=== PATIENT | female | born 2005 | race Caucasian/White ===

== ENCOUNTER 2025-08-09 12:54 | Emergency (ER) | payer BC, SELFPAY ==
--- NOTE | ~2025-08-09 | CT_ITS ---
Exam: CT abdomen and pelvis with contrast Clinical History: [Hypoglycemia. ] Comparison: [ None available] Technique: Multiple axial CT images of the abdomen and pelvis were obtained with IV contrast. Sagittal and coronal reformatted images were obtained. FINDINGS: Lung bases: [ ] Liver: The liver is heterogeneous particularly in the right lobe of the liver near the liver dome. There are a few too small to characterize low-attenuation lesions in the liver. [ No intrahepatic biliary duct dilatation.] Gallbladder: [ No wall thickening or stones.] Common bile duct: [ Normal caliber.] [ No stones.] Spleen: [ Within normal limits.] Pancreas: [ No mass. No pancreatic fluid collection.] Adrenals: [ No masses.] Kidneys: [ No masses. No hydronephrosis.][ ] Lymph nodes: [ No adenopathy in the abdomen or pelvis.] Stomach, small bowel and colon: [ No bowel wall thickening or obstruction.] Peritoneum cavity: Small amount of nonspecific fluid and fat stranding in the pelvis. Bladder: [ Unremarkable.] Osseous structures: [ No acute fracture or destructive lesion.] [ Multilevel degenerative change in the visualized spine.] Abdominal aorta: [ No aneurysm.] Additional findings: [ None of significance.] IMPRESSION: 1. The liver is heterogeneous particularly in the right lobe of the liver near the liver dome. Differential includes but is not limited to hepatocellular disease, fatty infiltration or hepatitis. Other etiologies are possible. There are a few too small to characterize low-attenuation lesions in the liver as well. A liver mass MRI is recommended for further assessment. Correlate clinically. 2. Small amount of nonspecific fluid and fat stranding in the pelvis. Reviewed, dictated and finalized at location Q. IMPRESSION: 1. The liver is heterogeneous particularly in the right lobe of the liver near the liver dome. Differential includes but is not limited to hepatocellular dise ase, fatty infiltration or hepatitis. Other etiologies are possible. There are a few too small to characterize low-attenuation lesions in the liver as well. A liver mass MRI is recommended for further assessment. Correlate clinically. 2. Small amount of nonspecific fluid and fat stranding in the pelvis.
--- NOTE | ~2025-08-09 | CT_ITS ---
CT HEAD NON-CONTRAST Clinical History: AMS Comparison: None Technique: Unenhanced axial images skull base to vertex Coronal, sagittal reformats CT images acquired with automatic exposure control for dose reduction DLP: 605 mGy-cm Findings: Sulci, ventricles: Unremarkable. No intracerebral hemorrhage. No evidence acute territorial infarct. No mass effect, midline shift. Bony calvarium intact. Visualized paranasal sinuses: Clear. Mastoid air cells: Clear. IMPRESSION: 1. No acute intracranial findings. Reviewed, dictated and finalized at location R.
[2025-08-09 13:01] VITALS: BP 148/85; PULSE 81; RESP 20; TEMP 36.9; O2SAT 100
[2025-08-09 13:23] LABS: BEDSIDEPREGUCG Negative (Negative)
--- NOTE | 2025-08-09 13:56 | ED_ITS ---
HPI - General Adult General Chief complaint: Recheck/Abnormal Lab/Rx Stated complaint: low BS Time Seen by Provider: 08/09/25 13:13 History of Present Illness HPI narrative: Patient is a 20-year-old female who presents ER with low blood sugar. She is not known to be diabetic. She has had issues with low blood sugar in the past. She reports she ate a normal breakfast and had just finished eating [employer] when this occurred. She did have loss of consciousness and her blood sugar was found to be in the 50s. Patient does feel lightheaded with sitting up. She denies any recent febrile illness. She has been having some crampy abdominal discomfort. No urinary frequency urgency or dysuria. Denies heavy alcohol use or any drug use. She does report that her legs feel weak and heavy. Related Data Allergies Allergy/AdvReac Type Severity Reaction Status Date / Time No Known Allergies Allergy Verified 08/09/25 15:02 Review of Systems 2 Review of Systems: All systems reviewed & are unremarkable except as noted in HPI and below Constitutional: Constitutional: Reports no additional constitutional complaints ENT: Reports system reviewed and no additional complaints, except as documented Cardiovascular: Cardiovascular: Reports no additional cardiovascular complaints Respiratory: Respiratory: Reports no additional respiratory complaints Gastrointestinal: Gastrointestinal: Reports no additional gastrointestinal complaints Genitourinary: Genitourinary: Reports no additional female genitourinary complaints Musculoskeletal: Musculoskeletal: Reports no additional musculoskeletal complaints [facility] Past Medical History Medical History (Updated 08/09/25 @ 16:56 by Thomas Villatoro MD) Healthy female adult Social History Social History (Updated 08/09/25 @ 13:58 by Thomas Villatoro MD) Alcohol intake: never Substance use: never Exam 2 Narrative: GENERAL: Well-appearing, well-nourished, and in no acute distress. HEAD: Normocephalic, atraumatic. EYES: PERRL and EOMI. ENT: Mucous membranes moist. CHEST: Clear to auscultation. No respiratory distress. HEART: Regular rate and rhythm. Normal peripheral pulses. ABDOMEN: Soft, nontender, nondistended. EXTREMITIES: Normal range of motion. No edema. SKIN: Warm, dry, no rash. NEURO: Alert and oriented x3. PSYCH: Normal mood and affect. Course Course Emergency Course: Discussed labs and imaging results with the patient her family. I have also discussed them with Dr. Gurrola the on-call PCP as the patient does not have 1. He is happy to follow the patient up and further evaluate the liver inflammation with an MRI. I will also add on a hepatitis panel. Vital Signs Vital signs: Vital Signs Temperature 98.5 F 08/09/25 13:01 Pulse Rate 81 08/09/25 13:01 Respiratory Rate 20 08/09/25 13:01 Blood Pressure 148/85 H 08/09/25 13:01 Pulse Oximetry 100 08/09/25 13:01 Oxygen Delivery Room Air 08/09/25 13:01 Temperature 98.5 F 08/09/25 13:01 Pulse Rate 87 08/09/25 13:58 Respiratory Rate 16 08/09/25 13:58 Blood Pressure 129/75 08/09/25 13:58 Pulse Oximetry 99 08/09/25 13:58 Oxygen Delivery Room Air 08/09/25 13:01 Medical Decision Making Vital Signs Vital Signs: Vital Signs Temperature 98.5 F 08/09/25 13:01 Pulse Rate 81 08/09/25 13:01 Respiratory Rate 20 08/09/25 13:01 Blood Pressure 148/85 H 08/09/25 13:01 Pulse Oximetry 100 08/09/25 13:01 Oxygen Delivery Room Air 08/09/25 13:01 Temperature 98.5 F 08/09/25 13:01 Pulse Rate 87 08/09/25 13:58 Respiratory Rate 16 08/09/25 13:58 Blood Pressure 129/75 08/09/25 13:58 Pulse Oximetry 99 08/09/25 13:58 Oxygen Delivery Room Air 08/09/25 13:01 Lab Data 08/09/25 13:58 08/09/25 13:58 Labs: Lab Results 08/09/25 08/09/25 08/09/25 Range/Units 13:03 13:21 13:28 WBC (4.5-10.0) K/mm3 RBC (4.2-5.4) M/mm3 Hgb (12.0-15.0) g/dL Hct (37.0-47.0) % MCV (80-100) fl MCH (26-34) pg MCHC (32-36) g/dl RDW (11.5-14.5) % Plt Count (150-375) k/mm3 MPV (7.4-10.4) fl Immature Gran % (Auto) (0-0.5) % Neut % (Auto) (45.5-73.1) % Lymph % (Auto) (18.3-44.2) % Brooke % (Auto) (2.6-8.5) % Eos % (Auto) (0-4.4) % Baso % (Auto) (0.2-1.2) % Lymph # (Auto) (0.9-3.2) K/mm3 Brooke # (Auto) (0.1-0.6) K/mm3 Eos # (Auto) (0-0.3) K/mm3 Baso # (Auto) (0.0-0.1) K/mm3 Abs Immat Gran (auto) (0.00-0.031) K/mm3 Absolute Neuts (auto) (1.3-6.7) K/mm3 Absolute Nucleated RBC (0.0-0.012) K/mm3 Nucleated RBC % (0.0-0.2) % Sodium (137-145) mmol/L Potassium (3.4-5.0) mmol/L Chloride (98-107) mmol/L Carbon Dioxide (22-30) mmol/L Anion Gap (4-12) mmol/L BUN (7-17) mg/dL Creatinine (0.7-1.0) mg/dL Estim Creat Clear Calc ml/min Estimated GFR (59 - ) Glucose (65-110) mg/dL POC Capillary Glucose 152 H 159 H (65-105) mg/dl Insulin Level C-Peptide Calcium (8.4-10.2) mg/dL Total Bilirubin (0.2-1.3) mg/dL AST (14-36) U/L ALT (6-35) U/L Alkaline Phosphatase (38-126) U/L Total Protein (6.3-8.2) g/dL Albumin (3.5-5.1) g/dL Lipase (23-300) U/L Urine Color (Yellow) Urine Appearance (Clear) Urine pH (5.0-9.0) Ur Specific Center Line (1.001-1.035) Urine Protein (Negative) mg/dL Urine Glucose (UA) (Negative) mg/dL Urine Ketones (Negative) mg/dL Ur Blood (Man) (Negative) Urine Nitrate (Negative) Urine Bilirubin (Negative) Urine Urobilinogen (<2.0) mg/dL Leukocyte Esterase Rfl (Negative) MARGO/UL POC Urine HCG, Qual Negative (Negative) Urine Opiates Screen (Negative) Urine Methadone Screen (Negative) Ur Barbiturates Screen (Negative) Ur Phencyclidine Scrn (Negative) Ur Amphetamine Screen (Negative) U Benzodiazepines Scrn (Negative) Urine Cocaine Screen (Negative) U Cannabinoids Screen (Negative) 08/09/25 08/09/25 Range/Units 13:58 14:25 WBC 7.8 (4.5-10.0) K/mm3 RBC 4.15 L (4.2-5.4) M/mm3 Hgb 13.2 (12.0-15.0) g/dL Hct 38.3 (37.0-47.0) % MCV 92.3 (80-100) fl MCH 31.8 (26-34) pg MCHC 34.5 (32-36) g/dl RDW 11.7 (11.5-14.5) % Plt Count 289 (150-375) k/mm3 MPV 10.2 (7.4-10.4) fl Immature Gran % (Auto) 0.3 (0-0.5) % Neut % (Auto) 62.4 (45.5-73.1) % Lymph % (Auto) 27.5 (18.3-44.2) % Brooke % (Auto) 7.9 (2.6-8.5) % Eos % (Auto) 0.9 (0-4.4) % Baso % (Auto) 1.0 (0.2-1.2) % Lymph # (Auto) 2.15 (0.9-3.2) K/mm3 Brooke # (Auto) 0.6 (0.1-0.6) K/mm3 Eos # (Auto) 0.1 (0-0.3) K/mm3 Baso # (Auto) 0.1 (0.0-0.1) K/mm3 Abs Immat Gran (auto) 0.02 (0.00-0.031) K/mm3 Absolute Neuts (auto) 4.9 (1.3-6.7) K/mm3 Absolute Nucleated RBC 0.000 (0.0-0.012) K/mm3 Nucleated RBC % 0.0 (0.0-0.2) % Sodium 137 (137-145) mmol/L Potassium 3.4 (3.4-5.0) mmol/L Chloride 104 (98-107) mmol/L Carbon Dioxide 25 (22-30) mmol/L Anion Gap 8 (4-12) mmol/L BUN 9 (7-17) mg/dL Creatinine 0.69 L (0.7-1.0) mg/dL Estim Creat Clear Calc 99 ml/min Estimated GFR > 60 (59 - ) Glucose 135 H (65-110) mg/dL POC Capillary Glucose (65-105) mg/dl Insulin Level Pending C-Peptide Pending Calcium 9.1 (8.4-10.2) mg/dL Total Bilirubin 0.4 (0.2-1.3) mg/dL AST 23 (14-36) U/L ALT 20 (6-35) U/L Alkaline Phosphatase 40 (38-126) U/L Total Protein 7.4 (6.3-8.2) g/dL Albumin 4.2 (3.5-5.1) g/dL Lipase 37 (23-300) U/L Urine Color Yellow (Yellow) Urine Appearance Clear (Clear) Urine pH 7.5 (5.0-9.0) Ur Specific Center Line 1.004 (1.001-1.035) Urine Protein Negative (Negative) mg/dL Urine Glucose (UA) Trace H (Negative) mg/dL Urine Ketones Negative (Negative) mg/dL Ur Blood (Man) Negative (Negative) Urine Nitrate Negative (Negative) Urine Bilirubin Negative (Negative) Urine Urobilinogen 0.2 (<2.0) mg/dL Leukocyte Esterase Rfl Negative (Negative) MARGO/UL POC Urine HCG, Qual (Negative) Urine Opiates Screen Negative (Negative) Urine Methadone Screen Negative (Negative) Ur Barbiturates Screen Negative (Negative) Ur Phencyclidine Scrn Negative (Negative) Ur Amphetamine Screen Negative (Negative) U Benzodiazepines Scrn Negative (Negative) Urine Cocaine Screen Negative (Negative) U Cannabinoids Screen Negative (Negative) Imaging Data Radiologist's impression: ITS Impressions Head CT 08/09/25 13:47 IMPRESSION: 1. No acute intracranial findings. Abdomen/Pelvis CT 08/09/25 15:27 IMPRESSION: 1. The liver is heterogeneous particularly in the right lobe of the liver near the liver dome. Differential includes but is not limited to hepatocellular disease, fatty infiltration or hepatitis. Other etiologies are possible. There are a few too small to characterize low-attenuation lesions in the liver as well. A liver mass MRI is recommended for further assessment. Correlate clinically. 2. Small amount of nonspecific fluid and fat stranding in the pelvis. Discharge Plan Discharge Clinical Impression: Hypoglycemia, Abnormal CT scan Patient Disposition: Home Condition: Stable Instructions: Non-diabetic Hypoglycemia (ED) Additional Instructions: Your blood sugar was low and was able to be corrected without issue. You have some labs that are still pending that will need to be followed up by a primary care doctor and you need to contact Dr. Gurrola's office to schedule an appointment. He is expecting this. Additionally you will need an outpatient MRI that he can help arrange. Return the ER if you have recurrent loss of consciousness or low blood sugar, you develop chest pain shortness of breath, you cannot keep down food water, or you have additional concerns. Patient Language: Mongolian Follow-up/Referrals: Solomon Gurrola MD [Physician, Family Practice] - 3 Days PHYSICIAN,LICENSED PRACTICAL VOCATIONAL NURSE [Primary Care Provider, Internal Medicine]
[2025-08-09 13:58] VITALS: BP 129/75; PULSE 87; RESP 16; O2SAT 99
[2025-08-09] MEDS: SODIUM CHLORIDE 0.9% IV 1,000 ML 999 ML IV CONT (13:58)
[2025-08-09 14:09] LABS: Hematocrit 38.3 % (37.0-47.0); Hemoglobin 13.2 g/dL (12.0-15.0); Immature Granulocyte Percent A 0.3 % (0-0.5); Lymphocytes Absolute Auto 2.15 K/mm3 (0.9-3.2); Mean Corpuscular HGB Conc 34.5 g/dl (32-36); Mean Corpuscular Hemoglobin 31.8 pg (26-34); Mean Corpuscular Volume 92.3 fl (80-100); Nucleated Red Blood Cells Absolute Auto 0.000 K/mm3 (0.0-0.012); Nucleated Red Blood Cells Perc 0.0 % (0.0-0.2); Platelet Count Result 289 k/mm3 (150-375); Red Blood Count 4.15 M/mm3 (4.2-5.4); White Blood Count 7.8 K/mm3 (4.5-10.0)
[2025-08-09 14:37] LABS: Add Urine Microscopic? NO; Appearance Urine Clear (Clear); Glucose Urine UA Trace mg/dL (Negative); Leukocyte Esterase Ur Negative LEU/UL (Negative); Nitrate Urine Negative (Negative); Specific Grav Ur 1.004 (1.001-1.035)
[2025-08-09 14:38] LABS: Alanine Aminotransferase 20 U/L (6-35); Albumin Level 4.2 g/dL (3.5-5.1); Alkaline Phosphatase 40 U/L (38-126); Anion Gap 8 mmol/L (4-12); Aspartate Amino Transferase 23 U/L (14-36); Bilirubin,Total 0.4 mg/dL (0.2-1.3); Blood Urea Nitrogen 9 mg/dL (7-17); Calcium 9.1 mg/dL (8.4-10.2); Carbon Dioxide 25 mmol/L (22-30); Chloride 104 mmol/L (98-107); Estimated CRCL calculation 99 ml/min; Estimated Glomerular Filt Rate > 60; Glucose 135 mg/dL (65-110); Lipase 37 U/L (23-300); Potassium 3.4 mmol/L (3.4-5.0); Sodium 137 mmol/L (137-145); Total Protein 7.4 g/dL (6.3-8.2)
[2025-08-09 14:58] LABS: Cannabinoid Screen Urine Negative (Negative)
--- OUTSIDE RECORDS SUMMARY | 2025-08-09 15:15 | XMS_ITS | Clinical Summary ---
Author Organization [facility] Address [address] 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 Last Documented On 0 1:25PM ; [facility] Plan of Treatment - Return to the clinic if condition worsens or new symptoms arise - Last Documented On 03/18/2023 12:52PM ; [facility] - Follow-up visit as needed with an office visit if symptoms persist or worsen - Last Documented On 03/18/2023 12:52PM ; [facility] - Patient to call if problem develops - Last Documented On 03/18/2023 12:52PM ; [facility] Instructions to patient Go to the emergency room if condition worsens Last Documented On 3 12:46PM ; [facility] Watch for signs/symptoms of infection Last Documented On 3 12:46PM ; [facility] Watch for signs/symptoms of infection, return to the clinic if seen Last Documented On 3 12:46PM ; [facility] Assessments Includes: Assessments from this encounter Findings - Acute pharyngitis - Last Documented On 03/18/2023 12:52PM ; [facility] Instructions Includes: Instructions from this encounter Instructions to patient Go to the emergency room if condition worsens Last Documented On 3 12:46PM ; [facility] Watch for signs/symptoms of infection Last Documented On 3 12:46PM ; [facility] Watch for signs/symptoms of infection, return to the clinic if seen Last Documented On 3 12:46PM ; [facility] Medical Equipment - Implanted Devices Includes: Current Devices No Medical Equipment Recorded Medications Includes: Medications discussed during this encounter and other current Medications Discontinued / Stopped on this date JOEL CARRILLO on 07/05/2022 Cephalexin 500 MG Oral Capsule Provider: JOEL CARRILLO Diagnosis: Acute pharyngiti s, unspecified Last Documented On 3 12:23PM By Courtney MCCABE ; [facility] Cephalexin 500 MG Oral Capsule Provider: ESTEPHANIA DODD Diagnosis: Acute tonsilliti s, unspecified Last Documented On 3 12:23PM By Courtney MCCABE ; [facility] New / Renewed during this visit JOEL CARRILLO on 03/18/2023 Cephalexin 500 MG Oral Capsule Provider: JOEL CARRILLO 10 day supply: 20 capsule, 0 refills Diagnosis: Acute pharyngitis, unspecified 1 CAPSULE TWO TIMES A DAY Pharmacy: [address], [phone] - Last Documented On 3 12:44PM By JOEL CARRILLO ; [facility] Current Medications (continue as prescribed) Hydrocortisone 1% External Cream 03/20/2022 Provider: JOEL DODD Diagnosis: Allergic contact dermatitis, unspecified cause Apply twice a day to neck ra sh until healed Last Documented On 2 6:40PM By Joel JONES-C ; [facility] Crl-Ft-Fvxpqvnq 0.18/0.215/0.25MG-25 MCG Oral Tablet 0 04/26/2019 Provider: Diagnosis: Last Documented On 2 2:03PM By JODY KRISHNAN [facility] ; [facility] Past Medications on file Amoxicillin 500 MG Oral Tablet 01/14/2020 - 01/24/2020 Provider: IVIS DODD Diagnosis: Streptococcal pharyngitis One tablet twice a day for ten days Last Documented On 01/14/2020 8:52AM By Ivis Crowley TYPEWRITER TESTER ; [facility] Augmentin 500-125MG Oral Tablet 11/10/2018 - 9 Provider: REBECCA RIVERA MD Diagnosis: One tablet twice a day Last Documented On 11/10/2018 10:32PM By ROSA RIVERA MD ; [facility] Medications Administered Includes: Administered Medications from this encounter No Administered Medications Recorded Vital Signs Includes: Vital Signs from this encounter Vital Name 03/18/2023 12:22P Pulse Rate-Sitting (bpm) 72 Respiration Rate (breaths/min) 20 Temp-Oral (F) 98.6 Height (in) 66.5 Weight (lb) 133 Body Mass Index 21.1 BMI Percentile (percentile) 42.1 Body Surface Area 1.7 Oxygen Saturation (%) 97 Last Documented: On 03/18/2023 12:23P M ; [facility] Results Includes: Results discussed during this encounter Group A strep [facility] Ordered by JOEL RAMIREZ [facility]- on Collected: Reported: 03/18/2023 12:24 Last Documented On 3 12:24PM ; [facility] Reviewed on 03/18/2023; All test results are final unless otherwise noted. Rapid Strep neg N (Normal) Last Documented On 3 12:24PM ; [facility] LOT # AND EXP. DATE [id number] 10/21/25 N (Normal) Last Documented On 3 12:24PM ; [facility] INT. QC ACCEPTABLE? yes N (Normal) Last Documented On 3 12:24PM ; [facility] History of Present Illness Includes: History of Present Illness from this encounter HPI TROY CUNNINGHAM is a 17 year old female. - Medication list reviewed. - Feeling fine - Not feeling tired - No fever - No chills - Do not shake the whole body - Headache - No sinus pain - No neck pain - No eye symptoms - Nasal passage blockage (stuffiness) - Sore throat constantly - Triggered by swallowing - No ear symptoms - No nasal discharge - No postnasal drip - No sneezing - No nasal itching - No chest pain or discomfort - No dyspnea - No cough - No wheezing - Decreased appetite - No heartburn - No nausea - No vomiting - No abdominal pain - No diarrhea - No skin symptoms pt to clinic for above symptoms x3 days she has been taking cold and flu medications Social History Description Last Updated Tobacco non-user 06/21/2023 Last Documented On 3 12:21PM ; [facility] Smoking Status Unknown Procedures and Surgical History Includes: Procedures from this encounter Procedures Code Diagnosis Performing Provider Service L ocation Service Date continue current medication Last Documented On 3 12:46PM ; [facility] the options include close observation Last Documented On 3 12:46PM ; [facility] watch for signs/symptoms of infection Last Documented On 3 12:46PM ; [facility] watch for signs/symptoms of infection, r eturn to the clinic if seen Last Documented On 3 12:46PM ; [facility] . Pt will start antibiotic t herapy as ordered. Discussed with pt /family that pt is contagious for 24 hours after start of antibiotic therapy and the importance of completing full course of antibiotic therapy. Recommended replacement of oral care products after three days of antibiotic therapy to reduce risk reinoculation with strep. Observe for signs/symptoms of strep in pt contacts. Discussed with pt /family expected course of improvement. Pt may return to activities after completing 24 hours of antibiotic therapy and feel well. Family to call back if not better in 3 days or worsens Last Documented On 3 12:46PM ; [facility] Pt to use OTC fever/pain product as need ed per product instruction.~ Last Documented On 3 12:46PM ; [facility] plan of care reviewed and agreed to by t he patient Last Documented On 3 12:46PM ; [facility] use of tobacco assessment performed 1000F Last Documented On 3 12:22PM ; [facility] Increase fluids Last Documented On 3 12:46PM ; [facility] Clinical summary provided to patient Last Documented On 3 12:46PM ; [facility] Medical History Includes: Medical History addressed during this encounter Description Last Updated Taking OTC medications 11/12/2023 Last Documented On 3 12:21PM ; [facility] Taking OTC pain medication / fever. Usin g Motrin 03/18/2023 Last Documented On 3 12:21PM ; [facility] Taking OTC pain medication /fever. Using Tylenol 03/18/2023 Last Documented On 3 12:52PM ; [facility] Family History Includes: Family History addressed during this encounter No Family History Recorded Review of Systems Includes: Review of Systems from this encounter Systemic: No fever. Chills. Head: Headache. Otolaryngeal: Sore throat. Mental Status Includes: Mental Status from this encounter No Mental Status Recorded Functional Status Includes: Functional Status from this encounter No Functional Status Recorded Physical Exam Includes: Physical Exam from this encounter Allergies Includes: Active Allergies No Known Allergies Encounters Encounter Provider Location Date Check-In Time Check-Out Time Diagnosis COVID SICK VIS[facility]- [facility] 03/18/20 23 12:09PM 12:29PM Pharyngitis Acute Insurance Includes: Active Insurance Policies Plan Name Member ID Group # Subscriber Relationship Effect reese Dates 1 - [employer] [id number] 01 VASILIY CUNNINGHAM Child 05/04/2022 - Unknown Clinical Notes Includes: Clinical Notes from this encounter * Progress note Date Encounter Last Documented by 03/18/2023 COVID SICK VISIT- ESTABLISHED JOSE OCAMPO Last documented on 03/18/2023; 12:52 PM[facility] Active Problems & Conditions - Coronavirus Covid-19 Infection Chief Complaint The Chief Complaint is: Pt here today for c/o sore throat, congestion, and cough since saturday. History of Present Illness TROY CUNNINGHAM is a 17 year old female. - Medication list reviewed. - Feeling fine - Not feeling tired - No fever - No chills - Do not shake the whole body - Headache - No sinus pain - No neck pain - No eye symptoms - Nasal passage blockage (stuffiness) - Sore throat constantly - Triggered by swallowing - No ear symptoms - No nasal discharge - No postnasal drip - No sneezing - No nasal itching - No chest pain or discomfort - No dyspnea - No cough - No wheezing - Decreased appetite - No heartburn - No nausea - No vomiting - No abdominal pain - No diarrhea - No skin symptoms pt to clinic for above symptoms x3 days she has been taking cold and flu medications Current Medication - Hydrocortisone 1% External Cream Apply twice a day to neck rash until healed, 30 days, 1 refills - Dwq-Zs-Rwwhrjvu 0.18/0.215/0.25MG-25 MCG Oral Tablet 0.18/0.215/0.25 MG-25 MCG One tablet daily 0 days, 0 refills Past Medical/Surgical History Reported: Medications: Taking OTC pain medication / fever. Using Motrin, qquj-ojw-krpfcou /fever. Using Tylenol, and efbg-nwk-ribfizt medications. Social History Tobacco use: Tobacco non-user. Allergies - No Known Allergies Review Of Systems Systemic: No fever. Chills. Head: Headache. Otolaryngeal: Sore throat. Physical Findings - Vitals taken 03/18/2023 12:22 pm Pulse Rate-Sitting 72 bpm Respiration Rate 20 per min Temp-Oral 98.6 F Height 66.5 in Weight 133 lbs Body Mass Index 21.1 kg/m2 BMI Percentile 42.1 % Body Surface Area 1.7 m2 Oxygen Saturation 97 % General Appearance: - Awake. - Alert. - Well developed. - Well nourished. - In no acute distress. Eyes: General/bilateral: Pupils: - PERRLA. Ears: Right Ear: Tympanic Membrane: - Normal. Left Ear: Tympanic Membrane: - Normal. Nose: General/bilateral: Discharge: - No nasal discharge. Sinus Tenderness: - No sinus tenderness. Pharynx: Oropharynx: - Tonsils showed abnormalities. - Tonsils were erythematous. - Inflamed. - Soft palate was normal. - Tonsils were not enlarged. - Tonsils showed no exudate. Mucosal: - Pharynx showed no accumulation of mucous. Lymph Nodes: - Lymph nodes: - Anterior cervical lymph nodes were enlarged on the right. - Anterior cervical lymph nodes were enlarged on the left. - Tender lymph nodes. Lungs: - Clear to auscultation. Cardiovascular: Heart Rate And Rhythm: - Normal. Abdomen: Auscultation: - Bowel sounds were normal. Palpation: - No direct tenderness in the abdomen. Skin: - Mucous membranes were not dry. Tests - Test: Group A strep Report Date: 03/18/2023 Rapid Strep neg Normal LOT # AND EXP. DATE [id number] 10/21/25 Normal INT. QC ACCEPTABLE? yes Normal Assessment - Acute pharyngitis Therapy - The options include close observation. - Increase fluids. - Watch for signs/symptoms of infection return to the clinic if seen. - Continue current medication. - Clinical summary provided to patient. - Plan of care reviewed and agreed to by the patient. . Pt will start antibiotic therapy as ordered. Discussed with pt /family that pt is contagious for 24 hours after start of antibiotic therapy and the importance of completing full course of antibiotic therapy. Recommended replacement of oral care products after three days of antibiotic therapy to reduce risk reinoculation with strep. Observe for signs/symptoms of strep in pt contacts. Discussed with pt /family expected course of improvement. Pt may return to activities after completing 24 hours of antibiotic therapy and feel well. Family to call back if not better in 3 days or worsens. Pt to use OTC fever/pain product as needed per product instruction. . Counseling/Education - Go to the emergency room if condition worsens Discussed Finish Full prescription of antibiotics. Eat yogurt and BRAT diet if diarrhea develops Drink 8-8oz glasses of water a day. [place] teeth twice a day Get a new tooth brush and new tooth paste day 4 of antibiotic therapy Plan StartCited - Acute pharyngitis, unspecified In office procedures/*Clia Waived Labs: Rapid Strep Test Cephalexin 500 MG capsule 1 CAPSULE TWO TIMES A DAY, 10 days, 0 refills EndCited - Return to the clinic if condition worsens or new symptoms arise - Follow-up visit as needed with an office visit if symptoms persist or worsen - Patient to call if problem develops Practice Management Use of tobacco assessment performed. Health Reminders - Assess BMI satisfied 03/18/2023. - Assess Tobacco Use satisfied 03/18/2023.
--- OUTSIDE RECORDS SUMMARY | 2025-08-09 15:15 | XMS_ITS ---
Author Organization [facility] Address [address] [place] [address] Phone Care Team Providers Care Post Doctoral Fellow Name Role Phone EDDI HERNÁNDEZ DO Unavailable [phone] PAMELA LIMON, MULU Morrow Primary Care Provider [phone] Problems Includes: Active, inactive, and resolved Problems All Visits Onset Date Resolved Date Provider Condition S tatus Coronavirus Covid-19 Infection 09/14/2020 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,TIPPING MACHINE OPERATOR-PC Active Last Documented On 0 1:25PM ; [facility] Otitis Media Right Ear 09/17/2015 12/21/2021 ROHITH SA G EULOGIO FLATWORK PRESSER-FPA, TRIP FOLLOWER-BC Resolved Last Documented On 12/21/2021 1:58PM ; [facility] Note: Unchanged Streptococcal Sore Throat 09/17/2015 12/21/2021 ME MERI G EULOGIO FLATWORK PRESSER-FPA, TRIP FOLLOWER-BC Resolved Last Documented On 12/21/2021 1:58PM ; [facility] Note: Unchanged Plan of Treatment Findings Encounter Date Ordered follow-up visit as n eeded with an office visit if symptoms persist or worsen COVID SICK VISIT- ESTABLISHED PATIENT with JOEL RAMIREZ TRIP FOLLOWER-BC 03/18/2023 Last Documented On 3 12:52PM ; [facility] Ordered patient to call if nikia haider develops COVID SICK VISIT- ESTABLISHED PATIENT with JOEL RAMIREZ TRIP FOLLOWER-BC 03/18/2023 Last Documented On 3 12:52PM ; [facility] Ordered return to the clinic if condition worsens or new symptoms arise COVID SICK VISIT- ESTABLISHED PATIENT with JOEL RAMIREZ TRIP FOLLOWER-BC 03/18/2023 Last Documented On 3 12:52PM ; [facility] Ordered follow-up visit as n eeded with an office visit if symptoms persist or worsen COVID SICK VISIT- ESTABLISHED PATIENT with JOEL RAMIREZ TRIP FOLLOWER-BC 07/05/2022 Last Documented On 2 3:58PM ; [facility] Ordered patient to call if p roblem develops COVID SICK VISIT- ESTABLISHED PATIENT with JOEL RAMIREZ TRIP FOLLOWER-BC 07/05/2022 Last Documented On 2 3:58PM ; [facility] Ordered return to the clinic if condition worsens or new symptoms arise COVID SICK VISIT- ESTABLISHED PATIENT with JOEL RAMIREZ TRIP FOLLOWER-BC 07/05/2022 Last Documented On 2 3:58PM ; [facility] Ordered follow-up visit as n eeded with an office visit if symptoms persist or worsen COVID SICK VISIT- ESTABLISHED PATIENT with ESTEPHANIA RUSSELL TRIP FOLLOWER-C 05/03/2022 Last Documented On 2 10:50AM ; [facility] Ordered patient to call if p roblem develops COVID SICK VISIT- ESTABLISHED PATIENT with ESTEPHANIA Harry RUSSELL TRIP FOLLOWER-C 05/03/2022 Last Documented On 2 10:50AM ; [facility] Ordered return to the clinic if condition worsens or new symptoms arise COVID SICK VISIT- ESTABLISHED PATIENT with ESTEPHANIA Harry RUSSELL TRIP FOLLOWER-C 05/03/2022 Last Documented On 2 10:50AM ; [facility] Clinical summary provided to patient ITALIA Norris IN PATIENT - ESTABLISHED PT with JOEL SHANNON TRIP FOLLOWER-C 03/20/2022 Last Documented On 2 6:50AM ; [facility] Plan of care reviewed and agreed to WALK IN PATIENT - ESTABLISHED PT with JOEL SHANNON TRIP FOLLOWER-C 03/20/2022 Last Documented On 2 6:50AM ; [facility] Continue current medication SICK VISIT with CHAD UMAÑA Sahara AMBROSIO CP,TIPPING MACHINE OPERATOR-PC 09/14/2020 Last Documented On 0 1:43PM ; [facility] The options include close observation SI CK VISIT with MUSHTAQ Sahara AMBROSIO CP,TIPPING MACHINE OPERATOR-PC 09/14/2020 Last Documented On 0 1:43PM ; [facility] Ordered follow-up visit as n eeded with an office visit if symptoms persist or worsen SICK VISIT with JOEL RAMIREZ [facility]- 09/04/2020 Last Documented On 0 4:13PM ; [facility] Ordered patient to call if p roblem develops SICK VISIT with JOEL RAMIREZ [facility]- 09/04/2020 Last Documented On 0 4:13PM ; [facility] Ordered return to the clinic if condition worsens or new symptoms arise SICK VISIT with JOEL RAMIREZ [facility]- 09/04/2020 Last Documented On 0 4:13PM ; [facility] Pt to use prescription as or dered. Purpose of and use of medication discussed. WALK-IN CLINIC SICK VISIT with IVIS BURNS TRIP FOLLOWER-C 01/14/2020 Last Documented On 0 9:08AM ; [facility] Continue current medication WALK-IN CLIN IC SICK VISIT with IVIS BURNS [facility] 01/14/2020 Last Documented On 0 9:08AM ; [facility] Ordered follow-up visit as n eeded with an office visit if symptoms persist or worsen WALK-IN CLINIC SICK VISIT with JOEL RAMIREZ [facility]- 09/22/2017 Last Documented On 7 9:31AM ; [facility] Ordered patient to call if p roblem develops WALK-IN CLINIC SICK VISIT with JOEL RAMIREZ [facility]- 09/22/2017 Last Documented On 7 9:31AM ; [facility] Ordered referred to primary care physician WALK-IN CLINIC SICK VISIT with JOEL RAMIREZ [facility]- 09/22/2017 Last Documented On 7 9:31AM ; [facility] Ordered return to the clinic if condition worsens or new symptoms arise WALK-IN CLINIC SICK VISIT with JOEL RAMIREZ [facility] 09/22/2017 Last Documented On 7 9:31AM ; [facility] Ordered Transition in care, clinical summary provided WALK-IN CLINIC SICK VISIT with JOEL RAMIREZ [facility]- 09/22/2017 Last Documented On 7 9:31AM ; [facility] Ordered follow-up visit as n eeded with an office visit if symptoms persist or worsen WALK-IN CLINIC SICK VISIT with JOEL RAMIREZ [facility] 02/04/2017 Last Documented On 7 6:11PM ; [facility] Ordered patient to call if nikia haider develops WALK-IN CLINIC SICK VISIT with JOEL RAMIREZ [facility]- 02/04/2017 Last Documented On 7 6:11PM ; [facility] Ordered referred to primary care physician WALK-IN CLINIC SICK VISIT with JOEL RAMIREZ [facility]- 02/04/2017 Last Documented On 7 6:11PM ; [facility] Ordered return to the clinic if condition worsens or new symptoms arise WALK-IN CLINIC SICK VISIT with JOEL RAMIREZ [facility]- 02/04/2017 Last Documented On 7 6:11PM ; [facility] Ordered Transition in care, clinical summary provided WALK-IN CLINIC SICK VISIT with JOEL RAMIREZ [facility] 02/04/2017 Last Documented On 7 6:11PM ; [facility] Ordered follow-up visit in 1 0 days with an office visit. F/U with PCP SAME DAY SICK VISIT with FIDELINA COX [facility] 09/17/2015 Last Documented On 5 4:40PM ; [facility] Instructions to patient Go to the emergency room if condition worsens Last Documented On 3 12:46PM ; [facility] Watch for signs/symptoms of infection Last Documented On 3 12:46PM ; [facility] Watch for signs/symptoms of infection, return to the clinic if seen Last Documented On 3 12:46PM ; [facility] Go to the emergency room if condition worsens Last Documented On 2 3:57PM ; [facility] Watch for signs/symptoms of infection Last Documented On 2 3:57PM ; [facility] Watch for signs/symptoms of infection, return to the clinic if seen Last Documented On 2 3:57PM ; [facility] Return to the clinic if cond ition worsens or new symptoms arise Last Documented On 2 10:31AM ; [facility] Watch for signs/symptoms of infection Last Documented On 2 10:31AM ; [facility] Watch for signs/symptoms of infection, return to the clinic if seen Last Documented On 2 10:31AM ; [facility] Go to the emergency room if condition worsens Last Documented On 0 4:08PM ; [facility] Watch for signs/symptoms of infection Last Documented On 0 4:08PM ; [facility] Watch for signs/symptoms of infection, return to the clinic if seen Last Documented On 0 4:08PM ; [facility] Go to the emergency room if condition worsens Last Documented On 7 9:29AM ; [facility] Watch for signs/symptoms of infection Last Documented On 7 9:29AM ; [facility] Watch for signs/symptoms of infection, return to the clinic if seen Last Documented On 7 9:29AM ; [facility] Go to the emergency room if condition worsens Last Documented On 7 6:10PM ; [facility] Watch for signs/symptoms of infection Last Documented On 7 6:10PM ; [facility] Watch for signs/symptoms of infection, return to the clinic if seen Last Documented On 7 6:10PM ; [facility] Education and Decision Aids were provided during visit for: Discussed nutritional needs Last Documented On 8 6:57PM ; [facility] Discussed concerns about garrick dequate physical activity Last Documented On 8 6:57PM ; [facility] Assessments Includes: Assessments for all patient encounters Findings Encounter Date [J06.9 - Acute upper respira tory infection, unspecified] viral upper respiratory infection COVID SICK VISIT- ESTABLISHED PATIENT with CRISTINE GOMEZ TRIP FOLLOWER-BC 11/12/2023 Last Documented On 4 2:09PM ; [facility] Viral gastroenteritis COVID SICK VISIT- ESTABLISHED PATIENT with CRISTINE GOMEZ TRIP FOLLOWER-BC 11/12/2023 Last Documented On 4 2:09PM ; [facility] Visit for: pre-employment physical WALK IN PATIENT - ESTABLISHED PT with ESTEPHANIA Harry RUSSELL TRIP FOLLOWER-C 06/21/2023 Last Documented On 3 4:18PM ; [facility] Acute pharyngitis COVID SICK VISIT- ES TABLISHED PATIENT with JOEL RAMIREZ TRIP FOLLOWER-BC 03/18/2023 Last Documented On 3 12:52PM ; [facility] Acute pharyngitis COVID SICK VISIT- ES TABLISHED PATIENT with JOEL RAMIREZ TRIP FOLLOWER-BC 07/05/2022 Last Documented On 2 3:58PM ; [facility] Acute pharyngitis COVID SICK VISIT- ES TABLISHED PATIENT with ESTEPHANIA Harry RUSSELL TRIP FOLLOWER-C 05/03/2022 Last Documented On 2 10:50AM ; [facility] Tonsillitis COVID SICK VISIT- ES TABLISHED PATIENT with ESTEPHANIA Harry RUSSELL TRIP FOLLOWER-C 05/03/2022 Last Documented On 2 10:50AM ; [facility] Allergic contact dermatitis WALK IN [facility] - ESTABLISHED PT with JOEL Jacobson MIRTHA TRIP FOLLOWER-C 03/20/2022 Last Documented On 2 6:50AM ; [facility] Infection of tooth COVID SICK VISIT- NE W PATIENT with JODY Paulson EULOGIO FLATWORK PRESSER-FPA, TRIP FOLLOWER-BC 12/21/2021 Last Documented On 2 2:04PM ; [facility] Sore throat COVID SICK VISIT- NE W PATIENT with JODY Paulson EULOGIO FLATWORK PRESSER-FPA, TRIP FOLLOWER-BC 12/21/2021 Last Documented On 2 2:04PM ; [facility] COVID-19 infection SICK VISIT with MUSHTAQ TAYLOR CP,TIPPING MACHINE OPERATOR-PC 09/14/2020 Last Documented On 0 1:43PM ; [facility] Acute pharyngitis SICK VISIT with JOEL GARRETT TRIP FOLLOWER-BC 09/04/2020 Last Documented On 0 4:13PM ; [facility] Otitis media of the right ear WALK-IN CL INIC SICK VISIT with ESTEPHANIA RUSSELL TRIP FOLLOWER-C 04/26/2019 Last Documented On 9 4:47PM ; [facility] Acute upper respiratory infection WALK-I N CLINIC SICK VISIT with FIDELINA A KAHRIG [facility] 08/21/2018 Last Documented On 8 6:57PM ; [facility] Earache in the right ear WALK-IN CLINIC SICK VISIT with FIDELINA A KAHRIG TRIP FOLLOWER-BC 08/21/2018 Last Documented On 8 6:57PM ; [facility] Acute pharyngitis WALK-IN CLINIC SICK VISIT with JOEL RAMIREZ [facility] 09/22/2017 Last Documented On 7 9:31AM ; [facility] Group A streptococcus: B hem olytic pharyngitis WALK-IN CLINIC SICK VISIT with JOEL RAMIREZ TRIP FOLLOWER-BC 02/04/2017 Last Documented On 7 6:11PM ; [facility] Discharge diagnosis of PRIMA RY CARE PROVIDER : DR. MULU SANTIAGO SAME DAY SICK VISIT with FIDELINA A KAHRIG [facility] 09/17/2015 Last Documented On 5 4:40PM ; [facility] Otitis media SAME DAY SICK VISIT with CATHLULI COSME A KAHRIG [facility] 09/17/2015 Last Documented On 5 4:40PM ; [facility] Otitis media of the right ear SAME DAY S ICK VISIT with FIDELINA A KAHRIG [facility] 09/17/2015 Last Documented On 5 4:40PM ; [facility] Streptococcal sore throat SAME DAY SICK VISIT with FIDELINA A KAHRIG TRIP FOLLOWER-BC 09/17/2015 Last Documented On 5 4:40PM ; [facility] Instructions Includes: Instructions for all patient encounters Instructions to patient Go to the emergency room if condition worsens Last Documented On 3 12:46PM ; [facility] Watch for signs/symptoms of infection Last Documented On 3 12:46PM ; [facility] Watch for signs/symptoms of infection, return to the clinic if seen Last Documented On 3 12:46PM ; [facility] Go to the emergency room if condition worsens Last Documented On 2 3:57PM ; [facility] Watch for signs/symptoms of infection Last Documented On 2 3:57PM ; [facility] Watch for signs/symptoms of infection, return to the clinic if seen Last Documented On 2 3:57PM ; [facility] Return to the clinic if cond ition worsens or new symptoms arise Last Documented On 2 10:31AM ; [facility] Watch for signs/symptoms of infection Last Documented On 2 10:31AM ; [facility] Watch for signs/symptoms of infection, return to the clinic if seen Last Documented On 2 10:31AM ; [facility] Go to the emergency room if condition worsens Last Documented On 0 4:08PM ; [facility] Watch for signs/symptoms of infection Last Documented On 0 4:08PM ; [facility] Watch for signs/symptoms of infection, return to the clinic if seen Last Documented On 0 4:08PM ; [facility] Go to the emergency room if condition worsens Last Documented On 7 9:29AM ; [facility] Watch for signs/symptoms of infection Last Documented On 7 9:29AM ; [facility] Watch for signs/symptoms of infection, return to the clinic if seen Last Documented On 7 9:29AM ; [facility] Go to the emergency room if condition worsens Last Documented On 7 6:10PM ; [facility] Watch for signs/symptoms of infection Last Documented On 7 6:10PM ; [facility] Watch for signs/symptoms of infection, return to the clinic if seen Last Documented On 7 6:10PM ; [facility] Education and Decision Aids were provided during visit for: Discussed nutritional needs Last Documented On 8 6:57PM ; [facility] Discussed concerns about garrick dequate physical activity Last Documented On 8 6:57PM ; [facility] Medical Equipment - Implanted Devices Includes: Current and historical Devices No Medical Equipment Recorded Medications Includes: Current and historical Medications Current Medications (continue as prescribed) Cephalexin 500 MG Oral Capsule 03/18/2023 Provider: JOEL RAMIREZ TRIP FOLLOWER-BC Diagnosis: Acute pharyngiti s, unspecified 1 CAPSULE TWO TIMES A DAY Last Documented On 3 12:44PM By JOEL RAMIREZ TRIP FOLLOWER-BC ; [facility] Hydrocortisone 1% External Cream 03/20/2022 Provider: JOEL CAPSERP-C Diagnosis: Allergic contact dermatitis, unspecified cause Apply twice a day to neck ra sh until healed Last Documented On 2 6:40PM By Joel JONES-C ; [facility] Rzs-Mn-Lpcejeyi 0.18/0.215/0.25MG-25 MCG Oral Tablet 0 04/26/2019 Provider: Diagnosis: Last Documented On 2 2:03PM By JODY KRISHNAN TRIP FOLLOWER-BC ; [facility] Past Medications on file Cephalexin 500 MG Oral Capsule 07/05/2022 - 03/18/2023 Provider: JOEL JONES-MINI Diagnosis: Acute pharyngiti s, unspecified 1 CAPSULE TWO TIMES A DAY Last Documented On 3 12:23PM By Courtney MCCABE ; [facility] Cephalexin 500 MG Oral Capsule 05/03/2022 - 03/18/2023 Provider: ESTEPHANIA RUSSLEL TRIP FOLLOWER-C Diagnosis: Acute tonsilliti s, unspecified One tablet twice a day Last Documented On 3 12:23PM By Courtney MCCABE ; [facility] Amoxicillin-Pot Clavulanate 875-125 MG Oral Tablet 12/21/2021 - 03/20/2022 Provider: JODY KRISHNAN FLATWORK PRESSER-FPA, TRIP FOLLOWER-BC Diagnosis: Other specified disorders of teeth and supporting structures One tablet twice a day Last Documented On 2 6:26PM By Joel Shannon TRIP FOLLOWER-C ; [facility] Amoxicillin 500 MG Oral Tablet 01/14/2020 - 01/24/2020 Provider: IVIS BURNS TRIP FOLLOWER-C Diagnosis: Streptococcal pharyngitis One tablet twice a day for ten days Last Documented On 01/14/2020 8:52AM By Ivis Burns TRIP FOLLOWER ; [facility] Cefdinir 300MG Oral Capsule 04/26/2019 - 01/14/2020 Provider: ESTEPHANIA PACHECO TRIP FOLLOWER-C Diagnosis: Otitis media, unspecified, right ear One tablet twice a day Last Documented On 01/14/2020 8:14AM By ROSALINE CARR A ; [facility] Augmentin 500-125MG Oral Tablet 11/10/2018 - 9 Provider: REBECCA RIVERA MD Diagnosis: One tablet twice a day Last Documented On 11/10/2018 10:32PM By ROSA RIVERA MD ; [facility] Cephalexin 500MG Oral Capsule 02/04/2017 - 08/21/2018 Provider: JOEL RAMIREZ TRIP FOLLOWER-BC Diagnosis: Streptococcal pharyngitis 1 CAPSULE TWO TIMES A DAY Last Documented On 08/21/2018 6:36PM By KYLER MOLINA A ; [facility] Augmentin 250-62.5 MG/5ML Suspension, when reconstituted 09/17/2015 - 02/04/2017 Provider: FIDELINA COX TRIP FOLLOWER-BC Diagnosis: Streptococcal pharyngitis 15ml twice daily for ten days Last Documented On 02/04/2017 5:56PM By ANEUDY NUNN A ; [facility] Medications Administered Includes: Administered Medications in patient's chart Medications Administered Diagnosis Date Pro vider methylPREDNISolone Acetate 4 0 MG/ML IJ KIT 03/20/2022 JOEL SHANNON F TIPPING MACHINE OPERATOR-C Last Documented On 2 6:48PM By Ashley Prado A ; [facility] Results Includes: Results from 08/09/2024 through 08/09/2025 No Results Recorded For Specified Dates History of Present Illness History of Present Illness not supported for this document type No History of Present Illness Recorded Social History Description Last Updated Smoking status : Never smoker 06/21/2023 Last Documented On 3 4:18PM ; [facility] Tobacco non-user 06/21/2023 Last Documented On 3 4:18PM ; [facility] Medical History Includes: Medical History in patient's chart Description Last Updated Not taking OTC medications 11/12/2023 Last Documented On 4 2:09PM ; [facility] Taking OTC pain medication /fever. Using Tylenol 03/18/2023 Last Documented On 3 12:52PM ; [facility] No Contact with and (Suspected) exposure to COVID-19 05/03/2022 Last Documented On 2 10:50AM ; [facility] No fall 05/03/2022 Last Documented On 2 10:50AM ; [facility] No exposure to a contagious disease 09/04 Last Documented On 0 1:43PM ; [facility] No exposure to a viral disease 0 Last Documented On 0 1:43PM ; [facility] Family History Includes: Family History in patient's chart No Family History Recorded Review of Systems Review of Systems not supported for this document type No Review of Systems Recorded Mental Status No Mental Status Recorded Functional Status No Functional Status Recorded Physical Exam Physical Exam not supported for this document type No Physical Exam Recorded Immunizations Includes: Immunizations in patient's chart Vaccine Dose # Date Site Reaction(s) Status Source TB TST (NOS) 1 06/03/2023 Left Lower Forearm Complete (Administered) [facility] Last Documented On 3 2:29PM ; [facility] TB TST (NOS) 2 06/21/2023 Right Lower Forearm Complete (Administered) [facility] Last Documented On 3 4:15PM ; [facility] Allergies Includes: Active, inactive, and resolved Allergies No Known Allergies Insurance Includes: Active Insurance Policies Plan Name Member ID Group # Subscriber Relationship Effect reese Dates 1 - [employer] [id number] VASILIY CUNNINGHAM Child 05/04/[birth year]22 - Unknown Clinical Notes Includes: Signed Clinical Notes starting from 11/23/2022 No Clinical Notes Recorded
--- OUTSIDE RECORDS SUMMARY | 2025-08-09 15:15 | XMS_ITS | Clinical Summary ---
Author Organization [facility] Address [address] [place] [address] Care Team Providers Care Stucco Laborer Name Role Phone Conchita Tenorio MD Primary Care Provider [phone] Source Comments [facility] and Associated Physician Practices is amultiple site organization consisting of ambulatory clinics and hospital sitesin [place], [place], [place] and [place]. This disclosure is being madepursuant to the Care Everywhere program and may not contain all information available regarding this patient. Last updated 18.[facility] Allergies No known active allergies Medications * Be aware that medications may not be up to date on this document. Alwaysverify current medications with the patient. Norgestim-Eth Estrad Triphasic (TRI-LO-RAGHU PO) Take by mouth once daily 0.18/0.215/ 0.25mg- 25mcg/table t Once daily Active Social History Tobacco Use Types Packs/Day Years Used Date Smoking Tobacco: Never Smokeless Tobacco: Never Tobacco Cessation:Counseling Given: Not Answered Alcohol Use Standard Drinks/Week Comments Yes 0 (1 standard drink = 0.6 oz pur e alcohol) occ AUDIT-C Answer Date Recorded Q1: How often do you have a drink containing alc ohol? Monthly or less 03/10/2025 Q2: How many drinks containi ng alcohol do you have on a typical day when you are drinking? 1 or 2 03/10/2025 Q3: How often do you have si x or more drinks on one occasion? Never 03/10/2025 Comments Unknown Sex and Gender Information Value Date Recorded Sex Assigned at Not on file Legal Sex Female 11:54 AM CDT Gender Identity Not on file Sexual Orientation Not on file Last Filed Vital Signs Vital Sign Reading Time Taken Comments Blood Pressure 113/70 03/10/2025 4:30 PM CDT Pulse 60 03/10/2025 4:30 PM CDT Temperature 36.6 C (97.8 F) 03/10/2025 3:37 PM CDT Respiratory Rate 16 03/10/2025 4:30 PM CDT Oxygen Saturation 100% 03/10/2025 4:30 PM CDT Inhaled Oxygen Concentration - - Weight 59 kg (130 lb) 03/10/2025 1:28 PM CDT Height 165.1 cm (5' 5) 03/10/2025 1:28 PM CDT Body Mass Index 21.63 03/10/2025 1:28 PM CDT Plan of Treatment Health Maintenance Due Date Last Done Comments HIV SCREENING 2018 HPV VACCINE (1 - 3-dose series) 2018 CHLAMYDIA/GONORRHEA SCREENING 2019 MENINGOCOCCAL (Group B) VACC INE SHARED DECISION-MAKING (1 of 2 - Standard) 2019 HEPATITIS C SCREENING 04/18/2021 DTAP/TDAP/TD VACCINES (1 - Tdap) 2022 HEPATITIS B VACCINE (1 of 3 - 19+ 3-dose series) 2022 PAP SMEAR 2024 DEPRESSION SCREENING 11/04/2024 COVID-19 VACCINE (1 - 2023-2 5 season) 2025 INFLUENZA VACCINE (#1) 2025 ZOSTER VACCINE (1 of 2) 2053 HIB VACCINE Aged Out No longer eligi ble based on patient's age to complete this topic MENINGOCOCCAL GROUPS A/C/Y/W VACCINE Aged Out No longer eligible b ased on patient's age to complete this topic PNEUMOCOCCAL VACCINE Aged Out No long er eligible based on patient's age to complete this topic Insurance SELF PAY NO INSURANCE Pay Care Teams Stucco Laborer Relationship Specialty Start Date End Date Conchita Tenorio MD [address] [place] [phone] PCP - General Pediatrics 03/01/25
--- OUTSIDE RECORDS SUMMARY | 2025-08-09 15:15 | XMS_ITS | Clinical Summary ---
Author Organization [facility] Address [address] [place] [address] Phone Care Team Providers Care Orthotic Finish Grinding Technician Name Role Phone BETTY REAGAN EDDI Tomas Unavailable [phone] PAMELA LIMON, MULU Morrow Primary Care Provider [phone] Reason for Visit and Chief Complaint The Chief Complaint is: TB skin test for college Problems Includes: Problems addressed during this encounter and other active Problems All Visits Onset Date Resolved Date Provider Condition S tatus Coronavirus Covid-19 Infection 09/14/2020 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 - Last Documented On 06/06/2023 10:25AM ; [facility] Assessments Includes: Assessments from this encounter No Assessments Recorded Medical Equipment - Implanted Devices Includes: Current Devices No Medical Equipment Recorded Medications Includes: Medications discussed during this encounter and other current Medications Current Medications (continue as prescribed) Cephalexin 500 MG Oral Capsule 03/18/2023 Provider: JOEL CARRILLO Diagnosis: Acute pharyngiti s, unspecified 1 CAPSULE TWO TIMES A DAY Last Documented On 3 12:44PM By JOEL CARRILLO ; [facility] Hydrocortisone 1% External Cream 03/20/2022 Provider: JOEL A MIRTHA VASCULAR RADIOLOGIST-C Diagnosis: Allergic contact dermatitis, unspecified cause Apply twice a day to neck ra sh until healed Last Documented On 2 6:40PM By Joel DODD ; [facility] Cyv-Tc-Tmfvdisz 0.18/0.215/0.25MG-25 MCG Oral Tablet 0 04/26/2019 Provider: Diagnosis: Last Documented On 2 2:03PM By JODY JONES- ; [facility] Past Medications on file Amoxicillin 500 MG Oral Tablet 01/14/2020 - 01/24/2020 Provider: IVIS DODD Diagnosis: Streptococcal pharyngitis One tablet twice a day for ten days Last Documented On 01/14/2020 8:52AM By Ivis JONES ; [facility] Augmentin 500-125MG Oral Tablet 11/10/2018 - 9 Provider: REBECCA RIVERA MD Diagnosis: One tablet twice a day Last Documented On 11/10/2018 10:32PM By ROSA RIVERA MD ; [facility] Medications Administered Includes: Administered Medications from this encounter No Administered Medications Recorded Vital Signs Includes: Vital Signs from this encounter Vital Name 06/03/2023 02:24P Blood Pressure Sitting L 106/68 BP Cuff Size Regular Pulse Rate-Sitting (bpm) 66 Pulse Rhythm Regular Respiration Rate (breaths/min) 21 Temp-Oral (F) 98.4 Height (in) 66 Weight (lb) 132.2 Body Mass Index 21.3 Body Surface Area 1.7 Oxygen Saturation (%) 99 Last Documented: On 06/03/2023 2:25PM ; [facility] Results Includes: Results discussed during this encounter Intradermal Test/ TB [facility] Ordered by IVIS DODD on 01/2023 Collected: Reported: 06/06/2023 10:24 Last Documented On 10:25AM ; [facility] Reviewed on 06/06/2023; All test results are final unless otherwise noted. TB Skin Test 0mm NEGATIVE N (Normal) Last Documented On 10:25AM ; [facility] History of Present Illness Includes: History of Present Illness from this encounter DEONTE CUNNINGHAM is a 18 year old female. - Allergy list reviewed - Medication list reviewed Usha is a 18-year-old female patient that presented to the walk-in clinic for TB skin test for college. Social History No Social History Recorded - Smoking Status Unknown Medical History Includes: Medical History addressed during this encounter No Medical History Recorded Family History Includes: Family History addressed during this encounter No Family History Recorded Review of Systems Includes: Review of Systems from this encounter No Review of Systems Recorded Mental Status Includes: Mental Status from this encounter No Mental Status Recorded Functional Status Includes: Functional Status from this encounter No Functional Status Recorded Physical Exam Includes: Physical Exam from this encounter Immunizations Includes: Immunizations addressed during this encounter Vaccine Dose # Date Site Reaction(s) Status Source TB TST (NOS) 1 06/03/2023 Left Lower Forearm Complete (Administered) [facility] Last Documented On 3 2:29PM ; [facility] Allergies Includes: Active Allergies No Known Allergies Encounters Encounter Provider Location Date Check-In Time Check-Out Time Diagnosis WALK IN PATIENT - ESTABLISHED PT IVIS DODD [facility] 06/03/20 23 2:04PM 2:21PM Insurance Includes: Active Insurance Policies Plan Name Member ID Group # Subscriber Relationship Effect reese Dates 1 - [employer] [id number] 01 VASILIY CUNNINGHAM Child 05/04/2022 - Unknown Clinical Notes Includes: Clinical Notes from this encounter * Progress note Date Encounter Last Documented by 06/03/2023 WALK IN PATIENT - ESTABLISHED PT Last documented on 06/06/2023; 10:25 AM, IVIS DODD; [facility] Chief Complaint The Chief Complaint is: TB skin test for college. History of Present Illness USHA CUNNINGHAM is a 18 year old female. - Allergy list reviewed - Medication list reviewed Usha is a 18-year-old female patient that presented to the walk-in clinic for TB skin test for college. Current Medication - Cephalexin 500 MG Oral Capsule 1 CAPSULE TWO TIMES A DAY, 10 days, 0 refills - Hydrocortisone 1% External Cream Apply twice a day to neck rash until healed, 30 days, 1 refills - Jrf-Ce-Pejkjans 0.18/0.215/0.25MG-25 MCG Oral Tablet 0.18/0.215/0.25 MG-25 MCG One tablet daily 0 days, 0 refills Allergies - No Known Allergies Physical Findings - Vitals taken 06/03/2023 02:24 pm BP-Sitting L 106/68 mmHg BP Cuff Size Regular Pulse Rate-Sitting 66 bpm Pulse Rhythm Regular Respiration Rate 21 per min Temp-Oral 98.4 F Height 66 in Weight 132 lbs 3.2 oz Body Mass Index 21.3 kg/m2 Body Surface Area 1.7 m2 Oxygen Saturation 99 % Psychiatric: Psychiatric: Value PHQ9 score: 0 Tests - Test: Intradermal Test/ TB Report Date: 06/06/2023 TB Skin Test 0mm NEGATIVE Normal Vaccinations - TB TST (NOS) Dose #1 Status: Administered Date: 06/03/2023 Plan Usha will return to clinic in 48-72 hours to have TB skin test read.
--- OUTSIDE RECORDS SUMMARY | 2025-08-09 15:15 | XMS_ITS ---
Care Plan - [facility] Created on: August 09, 2025 TROY CUNNINGHAM Kamryn : 2005 Sex: Female Author Organization [facility] Address [address] [place] [address] Phone Care Team Providers Care Mast Maker Name Role Phone EDDI HERNÁNDEZ DO Unavailable [phone] PAMELA LIMON, MULU Morrow Primary Care Provider [phone]
--- OUTSIDE RECORDS SUMMARY | 2025-08-09 15:16 | XMS_ITS | Clinical Summary ---
Author Organization [address] Address [address] [place] [phone] Care Team Providers Care Stringer Machine Tender Name Role Phone Conchita Tenorio MD Primary Care Pro vider Allergies No known active allergies Medications lidocaine viscous (XYLOCAINE) 2 % solutionIndicat ions:Ingrowing left great toenail Apply 1 mL topically every 3 (three) hours. 15 mL 8 Active Additional Information Patient not taking.Reported on 11/02/2024 norgestimate-et hinyl estradioL (Wii-Fw-Ipilbgj c) 0.18/0.215/0.25 mg-25 mcg per tablet Take 1 tablet by mouth daily 28 tablet 12 4 11/02/20 25 Active escitalopram (LEXAPRO) 10 mg tablet Take 1 tablet (10 mg total) by mouth daily 30 tablet 11 5 07/02/20 26 Active Active Problems Problem Noted Date Diagnosed Date Referred otalgia 03/20/2024 Infective otitis externa 03/20/2024 Hypoglycemia of childhood 03/20/2024 Acute suppurative otitis med ia without spontaneous rupture of ear drum 03/20/2024 Otalgia 03/20/2024 Suspected severe acute respi ratory syndrome coronavirus 2 (SARS-CoV-2) infection 03/20/2024 Overview (03/20/2024): Removal Reason: Problem added by user dlrohan from the COVID-19 watch flag Suppurative otitis media 03/20/2024 Recurrent major depression 10/22/2022 Anxiety 01/15/2022 Overview (03/20/2024): No SSRI initiation at this time. Counseling recommended. Disease due to severe acute respiratory syndrome coronavirus 2 (SARS-CoV-2) 09/14/2020 Dysmenorrhea 06/04/2018 Acne 06/04/2018 Acute streptococcal pharyngitis 05/14/2015 Overview (02/08/2017): Strep pharyngitis Encounters Date Type Department Care Team Description 07/02/2025 Telephone [facility] [address] [place] [phone] Jojo Crawford, DO Patient issue/concern from Last 3 Months Immunizations Immunization Administration Dates Next Due DTaP / Hep B / IPV 2003,2003, 003 DTaP, Unspecified 04/21/2008,11/08/2004 HPV9 12/19/2017,06/12/2017 Hep A, Unspecified 06/12/2010,04/07/2007 Hep B, Unspecified 2003,2003 HiB 07/28/2004, 3,2003,06/23 IPV 04/21/2008 Influenza LAIV (Nasal) 09/22/2015,2012,09/08/2012,08/22 Influenza, Live, Intranasal, Quadrivalent 09/22/2015,09/14/2013 Influenza, Quadrivalent, Spl it, Intramuscular 09/25/2016 Influenza, Quadrivalent, Spl it, Preservative Free, Intramuscular 08/01/2022,07/22/2020,08/02/2018,08/22 Influenza, Trivalent, IM (MDV) 07/30/2014 Influenza, Trivalent, Preser vative Free, Intramuscular 08/20/2019 MMR 04/20/2009,07/28/2004 Meningococcal Conjugate (Menveo) 06/16/2019,09/04 Pneumococcal, Unspecified 2003,2003, 2003 Tdap 08/02/2023,09/14/2013 Varicella 04/20/2009,04/17/2005 Family History Medical History Relation Name Comments Diabetes Mother Relation Name Status Comments Mother Social History Tobacco Use Types Packs/Day Years Used Date Smoking Tobacco: Never Smokeless Tobacco: Never Tobacco Cessation:Counseling Given: Not Answered Comments No Sex and Gender Information Value Date Recorded Sex Assigned at Not on file Legal Sex Female 11:28 PM PRESIDENT AND CMO Gender Identity Not on file Sexual Orientation Not on file Occupation Industry Job Start Date Job End Date None Not on file Not on file Not on file Obstetrics History Para Term AB IAB SAB Ectopic Multiple Livin g Live Births 0 0 0 0 0 0 0 0 0 0 0 Last Filed Vital Signs Vital Sign Reading Time Taken Comments Blood Pressure 112/60 11/02/2024 1:22 PM PRESIDENT AND CMO Pulse 89 07/10/2018 7:18 PM CDT Temperature 36.7 C (98.1 F) 07/10/2018 7:18 PM CDT Respiratory Rate 18 07/10/2018 7:18 PM CDT Oxygen Saturation 98% 07/10/2018 7:18 PM CDT Inhaled Oxygen Concentration - - Weight 64.1 kg (141 lb 6.4 oz) 11/02/2024 1:22 P M PRESIDENT AND CMO Height 167.6 cm (5' 6) 11/02/2024 1:22 PM PRESIDENT AND CMO Body Mass Index 22.82 11/02/2024 1:22 PM PRESIDENT AND CMO Plan of Treatment Health Maintenance Due Date Last Done Comments Chlamydia and Gonorrhea (GC/CT) Screening 2005 Depression Screening 2003 Hepatitis C Screening 2003 Meningococcal B Vaccine (1 of 2 - Standard) 2019 Covid-19 Vaccine (2 - season) 2025 05/30/2021 Influenza Vaccine (#1) 2025 , 07/22/2020, 08/20/2019, Additional history exists Cervical Cancer Screening 11/02/2025 11/02/2024 Regular Well Visit/Exam 18-64 11/02/2025 11/02/2024, 10/25/2023 DTaP/Tdap/Td Vaccine (8 - Td or Tdap) 08/02/2033 08/02/2023, 09/14/2013, 04/21/2008, Additional history exists Hepatitis B Screening Completed 2003 , 2003, 2003, Additional history exists Pneumococcal vaccine <65 Aged Out 003, 2003, 2003 No longer eligible based on patient's age to complete this topic Varicella Vaccines Completed 04/20/2009, 04/17/2005 HPV Vaccines Completed 12/19/2017, 06/12/2017 Procedures Procedure Name Priority Date/Time Associated Diagnosis Comments PAP WITH REFLEX TO HIGH RISK HPV Routine 11/02/2024 10:46 AM PRESIDENT AND CMO Screening for malignant neoplasm of cervix from Last 3 Months or Most Recently Relevant to Health Maintenance Results * Pap with reflex to High Risk HPV and Genotyping (Cytology Component) (11/02/2024 10:46 AM PRESIDENT AND CMO) Thin prep (Pap test) 11/02/2024 10:46 AM PRESIDENT AND CMO 11/02/2024 10:46 AM PRESIDENT AND CMO Narrative PATHOLOGY CH - 11/05/2024 2:50 PM PRESIDENT AND CMO [facility] Department of Pathology [address] [place], [place] [id number] Final Report Note to Patients: This report may contain a detailed description of human tissue sent by a health care provider to the laboratory for pathologic evaluation. The content of this report is essential for diagnosis and may provide important critical findings. This information may be unfamiliar to patients to review without a medical professional present. It is advised that the patient review this report in the presence of a health care provider who can answer questions and explain the details. Patient Name: USHA CUNNINGHAM Address: [address] [place] [address] Gender: F : 2005 (Age: 19) Service: Location: [facility] : [id number] [facility] #: [id number] Patient Type: [facility] SPECIMEN Taken: 11/02/2024 Received: 11/02/2024 Accessioned:: 11/03/2024 Reported: 11/05/2024 Physician(s): Jojo Crawford D.O. Jojo Crawford D.O. Diagnosis: SOURCE OF SPECIMEN Imaged Thinprep Pap Test w/ Reflex HPV - [employer] Operator Cytologic Material: STATEMENT OF ADEQUACY - Specimen satisfactory for interpretation; endocervical/transformation zone component absent or insufficient GENERAL CATEGORIZATION: - Negative for intraepithelial lesion or malignancy LISANDRO Bartlett(ASCP) Report Electronically Reviewed and Signed Out By LISANDRO Bartlett(ASCP) 11/05/2024 14:50:18Specimen(s) Received: A: Imaged Thinprep Pap Test w/ Reflex HPV - [employer] Operator Cytologic Material Clinical History: Last Menstrual Period: 10/07/24 The Pap test is a screening test used to aid in the detection of cervical cancer and its precursors. It should not be the sole means by which malignant and premalignant lesions are diagnosed. Both false negative and false positive results may occur. It also has poor sensitivity for the detection of endometrial lesions and should not be used to evaluate suspected endometrial abnormalities. For these reasons it is most important to obtain Pap tests at regular intervals. The performance characteristics of some immunohistochemical stains, fluorescence in-situ hybridization tests and immunophenotyping by flow cytometry cited in this report (if any) were determined by the Surgical Pathology Department at [facility] as part of an ongoing quality control coordinator program and in compliance with federally mandated regulations drawn from the Clinical Laboratory Improvement Act of 1988 (CLIA '88). Some of these tests rely on the use of analyte specific reagents and are subject to specific labeling requirements by the US Food and Drug Administration. Such diagnostic tests may only be performed in a facility that is certified by the Department of Health and Human Services as a high complexity laboratory under CLIA '88. The FDA has determined that such clearance or approval is not necessary. This test is used for clinical purposes. It should not be regarded as investigational or for research. Nevertheless, federal rules concerning the medical use of analyte specific reagents require that the following disclaimer be attached to the report: This test was developed and its performance characteristics determined by the Surgical Pathology Department [facility]. It has not been cleared or approved by the U. S. Food and Drug Administration. Jojo Crawford DO LAB CYTOLOGY ORDERABLES Final Result PATHOLOGY [address] [place] [address] from Last 3 Months or Most Recently Relevant to Health Maintenance Insurance [facility] Care Teams Stringer Machine Tender Relationship Specialty Start Date End Date Conchita Tneorio MD PCP - General 04/08/09
--- OUTSIDE RECORDS SUMMARY | 2025-08-09 15:16 | XMS_ITS | Clinical Summary ---
Author Organization [facility] Address [address] [address] Phone Care Team Providers Care Manager Fleet Name Role Phone EDDI HERNÁNDEZ DO Unavailable [phone] PAMELA LIMON, MULU Morrow Primary Care Provider [phone] Reason for Visit and Chief Complaint visit for: pre-employment physical - The Chief Complaint is: PT HERE FOR WORK PHYSICAL Problems Includes: Problems addressed during this encounter and other active Problems All Visits Onset Date Resolved Date Provider Condition S tatus Coronavirus Covid-19 Infection 09/14/2020 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 No restrictions identified. Copy of physical made for chart. - Last Documented On 06/21/2023 4:18PM ; [facility] Assessments Includes: Assessments from this encounter Findings - Visit for: pre-employment physical [Z02.1 - Encounter for pre-employment examination] - Last Documented On 06/21/2023 4:18PM ; [facility] Medical Equipment - Implanted Devices Includes: Current Devices No Medical Equipment Recorded Medications Includes: Medications discussed during this encounter and other current Medications Current Medications (continue as prescribed) Cephalexin 500 MG Oral Capsule 03/18/2023 Provider: EUGENIA RAMIREZ BUSINESS PROPOSAL REP- Diagnosis: Acute pharyngiti s, unspecified 1 CAPSULE TWO TIMES A DAY Last Documented On 3 12:44PM By EUGENIA JONES-MINI ; [facility] Hydrocortisone 1% External Cream 03/20/2022 Provider: EUGENIA DODD Diagnosis: Allergic contact dermatitis, unspecified cause Apply twice a day to neck ra sh until healed Last Documented On 2 6:40PM By Eugenia DODD ; [facility] Wdi-Hl-Yvgeontw 0.18/0.215/0.25MG-25 MCG Oral Tablet 0 04/26/2019 Provider: Diagnosis: Last Documented On 2 2:03PM By JODY KRISHNAN BUSINESS PROPOSAL REP-MINI ; [facility] Medications Administered Includes: Administered Medications from this encounter No Administered Medications Recorded Vital Signs Includes: Vital Signs from this encounter Vital Name 06/21/2023 03:32P Blood Pressure Sitting L 112/76 BP Cuff Size Regular Pulse Rate-Sitting (bpm) 79 Respiration Rate (breaths/min) 20 Temp-Oral (F) 99.2 Height (in) 66 Weight (lb) 130.4 Body Mass Index 21 Body Surface Area 1.7 Oxygen Saturation (%) 99 Last Documented: On 06/21/2023 3:32PM ; [facility] Results Includes: Results discussed during this encounter No Results Recorded For Specified Dates History of Present Illness Includes: History of Present Illness from this encounter DEONTE CUNNINGHAM is a 18 year old female. - Allergy list reviewed - Medication reconciliation performed - Medication list reviewed - Medication list reviewed - No complaints - No fever - No chills - No headache - No neck pain - No neck stiffness - No lump or swelling in the neck - No swollen glands in the neck - No eye symptoms - No earache - No nasal discharge - No sore throat - No chest pain or discomfort - No palpitations - No pounding heartbeat - Not feeling congested in the chest - No dyspnea - Not expressed as feeling short of breath - No cough - Not causing awakening from sleep - Normal appetite - No nausea - No vomiting - No abdominal pain - No urinary symptoms - No musculoskeletal symptoms - Mood was euthymic - No skin lesions Patient is here today for pre-employment physical. Social History Description Last Updated Smoking status : Never smoker 06/21/2023 Last Documented On 3 4:18PM ; [facility] Tobacco non-user 06/21/2023 Last Documented On 3 4:18PM ; [facility] Procedures and Surgical History Includes: Procedures from this encounter Procedures Code Diagnosis Performing Provider Service L ocation Service Date use of tobacco assessment performed 1000F Last Documented On 3 3:32PM ; [facility] Medical History Includes: Medical History addressed during this encounter No Medical History Recorded Family History Includes: Family History addressed during this encounter No Family History Recorded Review of Systems Includes: Review of Systems from this encounter Systemic: No systemic symptoms. Head: No head symptoms. Eyes: No eye symptoms. Otolaryngeal: No otolaryngeal symptoms. Cardiovascular: No cardiovascular symptoms. Pulmonary: No pulmonary symptoms. Gastrointestinal: No gastrointestinal symptoms. Musculoskeletal: No musculoskeletal symptoms. Skin: No skin symptoms. Mental Status Includes: Mental Status from this encounter Description Oriented to time, place, and person Functional Status Includes: Functional Status from this encounter No Functional Status Recorded Physical Exam Includes: Physical Exam from this encounter Immunizations Includes: Immunizations addressed during this encounter Vaccine Dose # Date Site Reaction(s) Status Source TB TST (NOS) 2 06/21/2023 Right Lower Forearm Complete (Administered) [facility] Last Documented On 3 4:15PM ; [facility] Allergies Includes: Active Allergies No Known Allergies Encounters Encounter Provider Location Date Check-In Time Check-Out Time Diagnosis WALK IN PATIENT - ESTABLISHED PT ESTEPHANIA DODD [facility] 06/21/20 23 3:22PM 4:09PM Visit For: Pre-employmen t Physical Insurance Includes: Active Insurance Policies Plan Name Member ID Group # Subscriber Relationship Effect reese Dates 1 - [employer] [id number] VASILIY CUNNINGHAM Child 05/04/2022 - Unknown Clinical Notes Includes: Clinical Notes from this encounter * Progress note Date Encounter Last Documented by 06/21/2023 WALK IN PATIENT - ESTABLISHED PT Last documented on 06/21/2023; 4:18 PM, ESTEPHANIA DODD; [facility] Chief Complaint The Chief Complaint is: PT HERE FOR WORK PHYSICAL. Reason For Visit Visit for: pre-employment physical. History of Present Illness TROY CUNNINGHAM is a 18 year old female. - Allergy list reviewed - Medication reconciliation performed - Medication list reviewed - Medication list reviewed - No complaints - No fever - No chills - No headache - No neck pain - No neck stiffness - No lump or swelling in the neck - No swollen glands in the neck - No eye symptoms - No earache - No nasal discharge - No sore throat - No chest pain or discomfort - No palpitations - No pounding heartbeat - Not feeling congested in the chest - No dyspnea - Not expressed as feeling short of breath - No cough - Not causing awakening from sleep - Normal appetite - No nausea - No vomiting - No abdominal pain - No urinary symptoms - No musculoskeletal symptoms - Mood was euthymic - No skin lesions Patient is here today for pre-employment physical. Social History Tobacco use: Tobacco non-user. Smoking status: Never smoker. Review Of Systems Systemic: No systemic symptoms. Head: No head symptoms. Eyes: No eye symptoms. Otolaryngeal: No otolaryngeal symptoms. Cardiovascular: No cardiovascular symptoms. Pulmonary: No pulmonary symptoms. Gastrointestinal: No gastrointestinal symptoms. Musculoskeletal: No musculoskeletal symptoms. Skin: No skin symptoms. Physical Findings - Vitals taken 06/21/2023 03:32 pm BP-Sitting L 112/76 mmHg BP Cuff Size Regular Pulse Rate-Sitting 79 bpm Respiration Rate 20 per min Temp-Oral 99.2 F Height 66 in Weight 130 lbs 6.4 oz Body Mass Index 21 kg/m2 Body Surface Area 1.7 m2 Oxygen Saturation 99 % General Appearance: - Awake. - Alert. - Well developed. - Well nourished. - In no acute distress. Neck: Suppleness: - Neck demonstrated no decrease in suppleness. Thyroid: - Showed no abnormalities. Cervical Mass: - No cervical mass was seen. Eyes: General/bilateral: Extraocular Movements: - Normal. Pupils: - PERRLA. Ears: General/bilateral: External Auditory Canal: - External auditory meatus normal. Tympanic Membrane: - Normal. Nose: General/bilateral: Discharge: - No nasal discharge. Sinus Tenderness: - No sinus tenderness. Pharynx: Oropharynx: - Normal. Lymph Nodes: - No adenopathy. Chest: - No thoracic asymmetry was noted. Lungs: - Normal breath sounds/voice sounds. - No wheezing was heard. - No rhonchi were heard. - No rales/crackles were heard. Cardiovascular: Heart Rate And Rhythm: - Normal. Murmurs: - No murmurs were heard. Back: - No tenderness on palpation. - No muscle spasm. - No costovertebral angle tenderness. Abdomen: Auscultation: - Bowel sounds were normal. Palpation: - Abdominal non-tender. - No mass was palpated in the abdomen. Hernia: - No hernia was discovered. Musculoskeletal System: General/bilateral: - Normal movement of all extremities. Cervical Spine: General/bilateral: - Cervical spine showed no abnormalities. Thoracic Spine: General/bilateral: - Thoracic spine showed no abnormalities. Thoracolumbar Spine: General/bilateral: - Thoracolumbar spine showed no abnormalities. Lumbar / Lumbosacral Spine: General/bilateral: - Lumbar/lumbosacral spine exhibited no abnormalities. Neurological: - Oriented to time, place, and person. Gait And Stance: - Normal. Reflexes: - Deep tendon reflexes were normal. Psychiatric: Mood: - Euthymic. Skin: - General appearance was normal. - Color and pigmentation were normal. - Moisture was normal. - Temperature was normal. Assessment - Visit for: pre-employment physical [Z02.1 - Encounter for pre-employment examination] Vaccinations - TB TST (NOS) Dose #2 Status: Administered Date: 06/21/2023 Plan StartCited - Encounter for screening for respiratory tuberculosis In office procedures/*Clia Waived Labs: Intradermal Test/TB EndCited Normal physical exam. No restrictions identified. Copy of physical made for chart. Practice Management Use of tobacco assessment performed.
--- OUTSIDE RECORDS SUMMARY | 2025-08-09 15:16 | XMS_ITS | Clinical Summary ---
Author Organization [facility] Address [address] [place] [address] Phone Care Team Providers Care Rotary Helper Name Role Phone EDDI HERNÁNDEZ DO Unavailable [phone] PAMELA LIMON, MULU Morrow Primary Care Provider [phone] Reason for Visit and Chief Complaint The Chief Complaint is: PT C/O CHILLS, FATIGUE, MUSCLE/BODY ACHES, [place], ST, NASAL CONGESTION, RUNNY NOSE, VOMITING, DIARRHEA, EARS HURT AND STOMACH ACHE Problems Includes: Problems addressed during this encounter and other active Problems All Visits Onset Date Resolved Date Provider Condition S tatus Coronavirus Covid-19 Infection 09/14/2020 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 -Discussed typical course of viral illness. -Push fluids, vitamin C and zinc. -OTC chlorseptic spray, cough drops, ibuprofen/tylenol as needed. -ER for severe worsening symptoms. -Follow up if symptoms not improving. - Last Documented On 11/12/2023 2:09PM ; [facility] Assessments Includes: Assessments from this encounter Findings - [A08.4 - Viral intestinal infection, unspecified] Viral gastroenteritis - Last Documented On 11/12/2023 2:09PM ; [facility] - [J06.9 - Acute upper respiratory infection, unspecified] Viral upper respiratory infection - Last Documented On 11/12/2023 2:09PM ; [facility] Medical Equipment - Implanted Devices Includes: Current Devices No Medical Equipment Recorded Medications Includes: Medications discussed during this encounter and other current Medications Current Medications (continue as prescribed) Cephalexin 500 MG Oral Capsule 03/18/2023 Provider: JOEL RAMIREZ VIDEO GAMES MECHANIC- Diagnosis: Acute pharyngiti s, unspecified 1 CAPSULE TWO TIMES A DAY Last Documented On 3 12:44PM By JOEL RAMIREZ [facility]- ; [facility] Hydrocortisone 1% External Cream 03/20/2022 Provider: JOEL JONES-C Diagnosis: Allergic contact dermatitis, unspecified cause Apply twice a day to neck ra sh until healed Last Documented On 2 6:40PM By Joel Sotomayor VIDEO GAMES MECHANICTrishC ; [facility] Pal-Gd-Nuspirtu 0.18/0.215/0.25MG-25 MCG Oral Tablet 0 04/26/2019 Provider: Diagnosis: Last Documented On 2 2:03PM By JODY KRISHNAN [facility]- ; [facility] Past Medications on file Amoxicillin 500 MG Oral Tablet 01/14/2020 - 01/24/2020 Provider: IVIS DODD Diagnosis: Streptococcal pharyngitis One tablet twice a day for ten days Last Documented On 01/14/2020 8:52AM By Ivis Crowley VIDEO GAMES MECHANIC ; [facility] Augmentin 500-125MG Oral Tablet 11/10/2018 - 9 Provider: REBECCA RIVERA MD Diagnosis: One tablet twice a day Last Documented On 11/10/2018 10:32PM By ROSA RIVERA MD ; [facility] Medications Administered Includes: Administered Medications from this encounter No Administered Medications Recorded Vital Signs Includes: Vital Signs from this encounter Vital Name 11/12/2023 01:45P Blood Pressure Sitting L 116/66 BP Cuff Size Regular Pulse Rate-Sitting (bpm) 110 Respiration Rate (breaths/min) 16 Temp-Oral (F) 101.1 Height (in) 66 Weight (lb) 137 Body Mass Index 22.1 Body Surface Area 1.7 Oxygen Saturation (%) 99 Last Documented: On 11/12/2023 1:46PM ; [facility] Results Includes: Results discussed during this encounter Group A strep [facility] Ordered by CRISTINE GOMEZ [facility] on 0 11/12/2023 Collected: Reported: 11/12/2023 14:06 Last Documented On 4 2:07PM ; [facility] Reviewed on 11/12/2023; All test results are final unless otherwise noted. Rapid Strep NEG N (Normal) Last Documented On 4 2:06PM ; [facility] LOT # AND EXP. DATE [id number] 03/28/26 N (Normal) Last Documented On 4 2:06PM ; [facility] INT. QC ACCEPTABLE? YES N (Normal) Last Documented On 4 2:06PM ; [facility] SARS COVID-19 FLU A & B [facility] Ordered by CRISTINE GOMEZ [facility]- on 0 11/12/2023 Collected: Reported: 11/12/2023 14:06 Last Documented On 4 2:07PM ; [facility] Reviewed on 11/12/2023; All test results are final unless otherwise noted. COVID NEG N (Normal) Last Documented On 4 2:06PM ; [facility] INFLUENZA A NEG (Negative) N (Normal) Last Documented On 4 2:06PM ; [facility] INFLUENZA B NEG (negative) N (Normal) Last Documented On 4 2:06PM ; [facility] INT. QC ACCEPTABLE? YES N (Normal) Last Documented On 4 2:06PM ; [facility] LOT # & EXP. DATE [id number] 09/30/24 N (Normal) Last Documented On 4 2:06PM ; [facility] History of Present Illness Includes: History of Present Illness from this encounter DEONTE CUNNINGHAM is a 18 year old female. - Allergy list reviewed - Medication list reviewed The patient presented today for concerns of sore throat, fever, headache, nausea, diarrhea, vomiting, stomach ach, ear pain and body aches. Symptoms have been present for about 3 days. She denies any SOB or chest pains. She denies any known sick contacts. She has not taken anything OTC for symptoms. No other concerns. Social History Description Last Updated Smoking status : Never smoker 06/21/2023 Last Documented On 4 1:44PM ; [facility] Tobacco non-user 06/21/2023 Last Documented On 4 1:44PM ; [facility] Procedures and Surgical History Includes: Procedures from this encounter Procedures Code Diagnosis Performing Provider Service L ocation Service Date plan of care reviewed and agreed to Last Documented On 4 2:08PM ; [facility] use of tobacco assessment performed 1000F Last Documented On 4 1:45PM ; [facility] Medical History Includes: Medical History addressed during this encounter Description Last Updated Not taking OTC medications 11/12/2023 Last Documented On 4 2:09PM ; [facility] No Contact with and (Suspected) exposure to COVID-19 05/03/2022 Last Documented On 4 1:44PM ; [facility] No fall 05/03/2022 Last Documented On 4 1:44PM ; [facility] No exposure to a contagious disease 09/04 Last Documented On 4 1:44PM ; [facility] No exposure to a viral disease 0 Last Documented On 4 1:44PM ; [facility] Family History Includes: Family History addressed during this encounter No Family History Recorded Review of Systems Includes: Review of Systems from this encounter Systemic: Feeling poorly (malaise) and fever. Head: Headache and sinus pain. Otolaryngeal: Earache, nasal discharge, and sore throat. Cardiovascular: No chest pain or discomfort and no palpitations. Pulmonary: No dyspnea. Cough. No wheezing. Gastrointestinal: Nausea, vomiting, abdominal pain, and diarrhea. Mental Status Includes: Mental Status from this encounter No Mental Status Recorded Functional Status Includes: Functional Status from this encounter No Functional Status Recorded Physical Exam Includes: Physical Exam from this encounter Allergies Includes: Active Allergies No Known Allergies Encounters Encounter Provider Location Date Check-In Time Check-Out Time Diagnosis COVID SICK VISIT- ESTABLISHED PATIENT CRISTINE GOMEZ VIDEO GAMES MECHANIC-BC [facility] 11/12/19 24 1:03PM 2:17PM Upper Respiratory Infection Viral,Gastroen teritis Viral Insurance Includes: Active Insurance Policies Plan Name Member ID Group # Subscriber Relationship Effect reese Dates 1 - [employer] [id number] VASILIY GRAY Child 05/04/2022 - Unknown Clinical Notes Includes: Clinical Notes from this encounter * Progress note Date Encounter Last Documented by 11/12/2023 COVID SICK VISIT- ESTABLISHED JOSE OCAMPO Last documented on 11/12/2023; 2:09 PM, CRISTINE GOMEZ [facility]-; [facility] Active Problems & Conditions - Coronavirus Covid-19 Infection Chief Complaint The Chief Complaint is: PT C/O CHILLS, FATIGUE, MUSCLE/BODY ACHES, [place], ST, NASAL CONGESTION, RUNNY NOSE, VOMITING, DIARRHEA, EARS HURT AND STOMACH ACHE. History of Present Illness TROY CUNNINGHAM is a 18 year old female. - Allergy list reviewed - Medication list reviewed The patient presented today for concerns of sore throat, fever, headache, nausea, diarrhea, vomiting, stomach ach, ear pain and body aches. Symptoms have been present for about 3 days. She denies any SOB or chest pains. She denies any known sick contacts. She has not taken anything OTC for symptoms. No other concerns. Current Medication - Cephalexin 500 MG Oral Capsule 1 CAPSULE TWO TIMES A DAY, 10 days, 0 refills - Hydrocortisone 1% External Cream Apply twice a day to neck rash until healed, 30 days, 1 refills - Eue-Xq-Mdbgmvbz 0.18/0.215/0.25MG-25 MCG Oral Tablet 0.18/0.215/0.25 MG-25 MCG One tablet daily 0 days, 0 refills Past Medical/Surgical History Reported: Medications: Not taking OTC medications. Exposure: No exposure to a contagious disease, not to a viral disease, and not Contact with and (Suspected) exposure to COVID-19. Physical Trauma: No fall. Social History Tobacco use: Tobacco non-user. Smoking status: Never smoker. Allergies - No Known Allergies Review Of Systems Systemic: Feeling poorly (malaise) and fever. Head: Headache and sinus pain. Otolaryngeal: Earache, nasal discharge, and sore throat. Cardiovascular: No chest pain or discomfort and no palpitations. Pulmonary: No dyspnea. Cough. No wheezing. Gastrointestinal: Nausea, vomiting, abdominal pain, and diarrhea. Physical Findings - Vitals taken 11/12/2023 01:45 pm BP-Sitting L 116/66 mmHg BP Cuff Size Regular Pulse Rate-Sitting 110 bpm Respiration Rate 16 per min Temp-Oral 101.1 F Height 66 in Weight 137 lbs Body Mass Index 22.1 kg/m2 Body Surface Area 1.7 m2 Oxygen Saturation 99 % General Appearance: - Well-appearing. - Awake. - Alert. - In no acute distress. Ears: Right Ear: External Auditory Canal: - Normal. Tympanic Membrane: - Serous exudate behind tympanic membrane. - Normal. Left Ear: External Auditory Canal: - Normal. Tympanic Membrane: - Serous exudate behind tympanic membrane. - Normal. Nose: General/bilateral: Discharge: - No nasal discharge. Pharynx: Oropharynx: - Tonsils showed abnormalities. - Tonsils were erythematous. - Tonsils were enlarged. - Inflamed. - Soft palate was normal. - Tonsils showed no exudate. Mucosal: - Pharynx showed an accumulation of mucous. Lymph Nodes: - No adenopathy. Lungs: - Clear to auscultation. - No decrease in breath sounds was heard in the right lung. - No decrease in breath sounds was heard in the left lung. - No wheezing was heard on the right. - No wheezing was heard on the left. - No rhonchi were heard on the right. - No rhonchi were heard on the left. Cardiovascular: Heart Rate And Rhythm: - Normal. Murmurs: - No murmurs were heard. Tests - Test: Group A strep Report Date: 11/12/2023 Rapid Strep NEG Normal LOT # AND EXP. DATE [id number] 03/28/26 Normal INT. QC ACCEPTABLE? YES Normal - Test: SARS COVID-19 FLU A & B Report Date: 11/12/2023 COVID NEG Normal INFLUENZA A NEG Normal INFLUENZA B NEG Normal INT. QC ACCEPTABLE? YES Normal LOT # & EXP. DATE [id number] 09/30/24 Normal Assessment - [A08.4 - Viral intestinal infection, unspecified] Viral gastroenteritis - [J06.9 - Acute upper respiratory infection, unspecified] Viral upper respiratory infection Therapy - Plan of care reviewed and agreed to. Plan StartCited - Acute upper respiratory infection, unspecified In office procedures/*Clia Waived Labs: Rapid Strep Test, SARS COVID-19 + flu A & B test EndCited -COVID, flu and strep testing is negative today. -Discussed typical course of viral illness. -Push fluids, vitamin C and zinc. -OTC chlorseptic spray, cough drops, ibuprofen/tylenol as needed. -ER for severe worsening symptoms. -Follow up if symptoms not improving. Practice Management Use of tobacco assessment performed. Health Reminders - Assess BMI satisfied 11/12/2023. - Assess Tobacco Use satisfied 11/12/2023.
--- OUTSIDE RECORDS SUMMARY | 2025-08-09 15:16 | XMS_ITS | Clinical Summary ---
Author Organization [facility] Address [address] [place] [address] Phone Care Team Providers Care Valet Manager Name Role Phone EDDI HERNÁNDEZ DO Unavailable [phone] PAMELA LIMON, MULU Morrow Primary Care Provider [phone] Reason for Visit and Chief Complaint The Chief Complaint is: Pt here with sore throat and fever Problems Includes: Problems addressed during this encounter and other active Problems All Visits Onset Date Resolved Date Provider Condition S tatus Coronavirus Covid-19 Infection 09/14/2020 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,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 Last Documented On 0 1:25PM ; [facility] Plan of Treatment - Return to the clinic if condition worsens or new symptoms arise - Last Documented On 07/05/2022 3:58PM ; [facility] - Follow-up visit as needed with an office visit if symptoms persist or worsen - Last Documented On 07/05/2022 3:58PM ; [facility] - Patient to call if problem develops - Last Documented On 07/05/2022 3:58PM ; [facility] Instructions to patient Go to the emergency room if condition worsens Last Documented On 2 3:57PM ; [facility] Watch for signs/symptoms of infection Last Documented On 2 3:57PM ; [facility] Watch for signs/symptoms of infection, return to the clinic if seen Last Documented On 2 3:57PM ; [facility] Assessments Includes: Assessments from this encounter Findings - Acute pharyngitis - Last Documented On 07/05/2022 3:58PM ; [facility] Instructions Includes: Instructions from this encounter Instructions to patient Go to the emergency room if condition worsens Last Documented On 2 3:57PM ; [facility] Watch for signs/symptoms of infection Last Documented On 2 3:57PM ; [facility] Watch for signs/symptoms of infection, return to the clinic if seen Last Documented On 2 3:57PM ; [facility] Medical Equipment - Implanted Devices Includes: Current Devices No Medical Equipment Recorded Medications Includes: Medications discussed during this encounter and other current Medications New / Renewed during this visit JOEL CARRILLO on 07/05/2022 Cephalexin 500 MG Oral Capsule Provider: JOEL CARRILLO 10 day supply: 20 capsule, 0 refills Diagnosis: Acute pharyngitis, unspecified 1 CAPSULE TWO TIMES A DAY Pharmacy: [address], [phone] - Last Documented On 3 12:23PM By Courtney MCCABE ; [facility] Current Medications (continue as prescribed) Cephalexin 500 MG Oral Capsule 03/18/2023 Provider: JOEL CARRILLO Diagnosis: Acute pharyngiti s, unspecified 1 CAPSULE TWO TIMES A DAY Last Documented On 3 12:44PM By JOEL CARRILLO ; [facility] Hydrocortisone 1% External Cream 03/20/2022 Provider: JOEL DODD Diagnosis: Allergic contact dermatitis, unspecified cause Apply twice a day to neck ra sh until healed Last Documented On 2 6:40PM By Joel DODD ; [facility] Xub-Uc-Srxzobks 0.18/0.215/0.25MG-25 MCG Oral Tablet 0 04/26/2019 Provider: Diagnosis: Last Documented On 2 2:03PM By JODY CARRILLO ; [facility] Past Medications on file Amoxicillin 500 MG Oral Tablet 01/14/2020 - 01/24/2020 Provider: IVIS DODD Diagnosis: Streptococcal pharyngitis One tablet twice a day for ten days Last Documented On 01/14/2020 8:52AM By Ivis JONES ; [facility] Augmentin 500-125MG Oral Tablet 11/10/2018 - 9 Provider: REBECCA RIVERA MD Diagnosis: One tablet twice a day Last Documented On 11/10/2018 10:32PM By ROSA RIVERA MD ; [facility] Medications Administered Includes: Administered Medications from this encounter No Administered Medications Recorded Vital Signs Includes: Vital Signs from this encounter Vital Name 07/05/2022 03:42P Pulse Rate-Sitting (bpm) 103 Temp-Oral (F) 101.2 Weight (lb) 115 Oxygen Saturation (%) 98 Last Documented: On 07/05/2022 3:42PM ; [facility] Results Includes: Results discussed during this encounter No Results Recorded For Specified Dates History of Present Illness Includes: History of Present Illness from this encounter DEONTE CUNNINGHAM is a 17 year old female. - Allergy list reviewed - Medication list reviewed - Fever - Feeling fine - Not feeling tired - No chills - Do not shake the whole body - Headache - No sinus pain - No neck pain - No eye symptoms - Sore throat constantly - Triggered by swallowing - No ear symptoms - No nasal discharge - No postnasal drip - No nasal passage blockage (stuffiness) - No sneezing - No nasal itching - No chest pain or discomfort - No dyspnea - No cough - No wheezing - Decreased appetite - No heartburn - No nausea - No vomiting - No abdominal pain - No diarrhea - No skin symptoms pt to clinic for sore throat and fever x 4 days Social History Description Last Updated Tobacco non-user 06/21/2023 Last Documented On 2 3:42PM ; [facility] Smoking Status Unknown Procedures and Surgical History Includes: Procedures from this encounter Procedures Code Diagnosis Performing Provider Service L ocation Service Date continue current medication Last Documented On 2 3:57PM ; [facility] the options include close observation Last Documented On 2 3:57PM ; [facility] watch for signs/symptoms of infection Last Documented On 2 3:57PM ; [facility] watch for signs/symptoms of infection, r eturn to the clinic if seen Last Documented On 2 3:57PM ; [facility] Pt will start antibiotic the rapy as ordered. Discussed with pt /family that [...] 3 days or worsens Last Documented On 2 3:58PM ; [facility] Pt to use OTC fever/pain product as need ed per product instruction.~ Last Documented On 2 3:57PM ; [facility] plan of care reviewed and agreed to by t sabra patient Last Documented On 2 3:57PM ; [facility] Increase fluids Last Documented On 2 3:57PM ; [facility] Clinical summary provided to patient Last Documented On 2 3:57PM ; [facility] Medical History Includes: Medical History addressed during this encounter Description Last Updated Taking OTC pain medication /fever. Using Tylenol 03/18/2023 Last Documented On 2 3:42PM ; [facility] Taking OTC medications 07/05/2022 Last Documented On 2 3:58PM ; [facility] Taking OTC pain medication / fever. Usin g Motrin 07/05/2022 Last Documented On 2 3:58PM ; [facility] Family History Includes: Family History addressed during this encounter No Family History Recorded Review of Systems Includes: Review of Systems from this encounter Systemic: Fever and chills. Head: Headache. Otolaryngeal: Sore throat. Mental Status Includes: Mental Status from this encounter No Mental Status Recorded Functional Status Includes: Functional Status from this encounter No Functional Status Recorded Physical Exam Includes: Physical Exam from this encounter Allergies Includes: Active Allergies No Known Allergies Encounters Encounter Provider Location Date Check-In Time Check-Out Time Diagnosis COVID SICK VISIT- ESTABLISHED PATIENT JOEL RAMIREZ [facility] 07/05/20 22 3:25PM 3:56PM Pharyngitis Acute Insurance Includes: Active Insurance Policies Plan Name Member ID Group # Subscriber Relationship Effect reese Dates 1 - [employer] [id number] 01 VASILIY CUNNINGHAM Ad Child 05/04/2022 - Unknown Clinical Notes Includes: Clinical Notes from this encounter No Clinical Notes Recorded
--- NOTE | 2025-08-09 16:24 | PC.NURSE ---
This RN ambulated pt around nurses station. Pt ambulated with steady gait. States feels better but legs still feel weak. Dr Villatoro aware. No orders received
[2025-08-09 17:32] LABS: Hepatitis B Surface Antigen Negative (Negative)
[2025-08-09 17:37] LABS: HAV RESULT Negative (Negative); Hepatitis B Core IgM Result Negative (Negative)
== END 2025-08-09 17:05 | disposition home or self-care (01) ==
PROVIDERS: Emergency Provider Emergency Medicine
DX: E16.2 Hypoglycemia, unspecified (principal); R93.2 Abnormal findings on diagnostic imaging of liver and biliary tract
CPT/HCPCS: 36415; 70450; 74177; 80053; 80074; 80307; 81003; 81025; 82948; 83525; 83690; 84681; 85025; 96360; 99284; J7030; Q9967